=== PATIENT | male | born 1950 | race Caucasian/White ===

== ENCOUNTER 2021-06-02 09:34 | Outpatient (REF) | payer MEDICARE, BC, SELFPAY ==
[2021-06-02 10:59] LABS: MANUAL DIFF FLAG NO
[2021-06-02 11:36] LABS: Basophils Absolute Auto 0.1 X10*3/uL (0.0-0.2); Basophils Percent Auto 1.7 % (0-2); Eosinophils Absolute Auto 0.1 X10*3/uL (0.0-0.4); Eosinophils Percent Auto 0.9 % (0-4); Hematocrit 43.5 % (42-52); Hemoglobin 14.3 g/dl (14.0-18.0); Imm Gran Abs Auto 0.01 X10*3/uL (0.00-0.03); Imm Gran Pct Auto 0.2 % (0.0-0.4); Lymphocytes Absolute Auto 1.4 X10*3/uL (1.2-4.9); Lymphocytes Percent Auto 26.7 % (20-40); Mean Corpuscular HGB Conc 32.9 g/dl (31.0-36.0); Mean Corpuscular Hemoglobin 29.7 pg (27.0-33.0); Mean Corpuscular Volume 90.4 fL (80-98); Mean Platelet Volume 10.9 fL (9.4-12.4); Monocytes Absolute Auto 0.6 X10*3/uL (0.1-1.2); Monocytes Percent Auto 10.8 % (2-11); Neutrophils Absolute Auto 3.2 X10*3/uL (2.0-8.3); Neutrophils Percent Auto 59.7 % (45-73); Platelet Count 222 X10*3/uL (160-400); Red Blood Count 4.81 X10*6/uL (4.60-5.80); Red Cell Distribution Width 16.2 % (11.0-16.0); White Blood Count 5.3 X10*3/uL (4.8-10.8)
[2021-06-02 11:37] LABS: Alanine Aminotransferase 17 U/L (0-40); Albumin Level 4.3 g/dL (3.5-5.0); Alkaline Phosphatase 98 U/L (39-117); Anion Gap 13 (12-20); Aspartate Amino Transferase 22 U/L (5-37); Bilirubin Total 1.2 mg/dL (0.0-1.0); Blood Urea Nitrogen 25 mg/dL (9-16); Calcium 9.5 mg/dL (8.4-10.2); Carbon Dioxide 25 mmol/L (22-29); Chloride 110 mmol/L (96-108); Cholesterol 134 mg/dL; Estimated Glomerular Filt Rate 48; Glucose Fasting 118 mg/dL (60-99); HDL Cholesterol 36 mg/dL; LDL Cholesterol Calculated 84 mg/dl; Sodium 143 mmol/L (135-145); Total Protein 6.9 g/dL (6.5-8.0); Triglycerides 71 mg/dL
[2021-06-02 12:03] LABS: Prostate Specific Antigen 3.03 ng/mL (<0.05-4.0); TSH reflex Free T4 2.99 uIU/mL (0.32-4.0); Vitamin D 25-OH Total 39.9 ng/mL (>30)
[2021-06-02 13:02] LABS: Appearance Urine CLOUDY; Color Urine YELLOW; Glucose Urine UA NEG (NEG); Leukocyte Esterase Urine TRACE (NEG); Nitrite Urine NEG (NEG); PH 5.5 (5.0-8.0); Specific Gravity - Urine >= 1.030 (1.005-1.025); UACC Culture Trigger YES; Urine Blood NEG (NEG); Urine Ketones NEG (NEG); Urine Protein TRACE MG/DL (NEG-TRACE)
[2021-06-02 13:17] LABS: Mucus Urine 2+ /LPF; RBC Urine 0 /HPF (0)
== END 2021-06-02 09:35 | disposition home or self-care (01) ==
LOC: HO.LAB 09:34
PROVIDERS: PCP Internal Medicine; Visit Provider Internal Medicine
DX: Z12.5 Encounter for screening for malignant neoplasm of prostate (principal); E78.00 Pure hypercholesterolemia, unspecified; I10 Essential (primary) hypertension; E55.9 Vitamin D deficiency, unspecified; N40.0 Benign prostatic hyperplasia without lower urinary tract symptoms
CPT/HCPCS: 36415; 80053; 80061; 81001; 82306; 84153; 84443; 85025; 87086; 87088; 87186

== ENCOUNTER 2022-02-09 11:21 | Outpatient (REF) | payer MEDICARE, BC, SELFPAY ==
[2022-02-09 11:53] LABS: MANUAL DIFF FLAG NO
[2022-02-09 12:03] LABS: Basophils Absolute Auto 0.1 X10*3/uL (0.0-0.2); Basophils Percent Auto 0.9 % (0-2); Eosinophils Absolute Auto 0.1 X10*3/uL (0.0-0.4); Eosinophils Percent Auto 1.7 % (0-4); Hematocrit 41.8 % (42.0-52.0); Hemoglobin 14.4 g/dl (14.0-18.0); Imm Gran Abs Auto 0.03 X10*3/uL (0.00-0.03); Imm Gran Pct Auto 0.5 % (0.0-0.4); Mean Corpuscular HGB Conc 34.4 g/dl (31.0-36.0); Mean Corpuscular Volume 98.8 fL (80.0-98.0); Monocytes Absolute Auto 0.7 X10*3/uL (0.1-1.2); Monocytes Percent Auto 12.8 % (2-11); Neutrophils Absolute Auto 3.8 x10*3/uL (2.0-8.3); Neutrophils Percent Auto 66.1 % (45-73); Platelet Count 230 X10*3/uL (160-400); Red Blood Count 4.23 X10*6/uL (4.60-5.80); Red Cell Distribution Width 12.3 % (11.0-16.0); White Blood Count 5.8 X10*3/uL (4.8-10.8)
[2022-02-09 12:12] LABS: Estimated Average Glucose 117 mg/dL; Hemoglobin A1c % 5.7 %
[2022-02-09 12:29] LABS: Alanine Aminotransferase 181 U/L (0-40); Albumin Level 3.9 g/dL (3.5-5.0); Alkaline Phosphatase 106 U/L (39-117); Anion Gap 13 (12-20); Aspartate Amino Transferase 101 U/L (5-37); Bilirubin Total 1.2 mg/dL (0.0-1.0); Blood Urea Nitrogen 25 mg/dL (9-16); Carbon Dioxide 25 mmol/L (22-29); Chloride 109 mmol/L (96-108); Estimated Glomerular Filt Rate 38; Glucose Random 97 mg/dL (60-115); Potassium 4.7 mmol/L (3.3-5.1); Sodium 142 mmol/L (135-145); Total Protein 6.6 g/dL (6.5-8.0)
[2022-02-09 12:33] LABS: B Type Natriuretic Peptide 169 pg/mL (<100)
[2022-02-09 12:48] LABS: TSH reflex Free T4 0.88 uIU/mL (0.32-4.0); Vitamin D 25-OH Total 38.8 ng/mL (>30)
[2022-02-09 13:39] LABS: Appearance Urine CLEAR; Color Urine YELLOW; Glucose Urine UA NEG (NEG); Leukocyte Esterase Urine NEG (NEG); Nitrite Urine NEG (NEG); PH 5.5 (5.0-8.0); Specific Gravity - Urine >= 1.030 (1.005-1.025); UACC Culture Trigger NO; Urine Blood TRACE (NEG); Urine Ketones NEG (NEG); Urine Protein TRACE MG/DL (NEG-TRACE)
[2022-02-09 13:55] LABS: Mucus Urine TRACE /LPF; RBC Urine 0-2 /HPF (0); WBC Urine 0-2 /HPF (0-4)
== END 2022-02-09 11:22 | disposition home or self-care (01) ==
LOC: HO.LAB 11:21
PROVIDERS: PCP Internal Medicine; Visit Provider Internal Medicine
DX: I12.9 Hypertensive chronic kidney disease with stage 1 through stage 4 chronic kidney disease, or unspecified chronic kidney disease (principal); N18.30 Chronic kidney disease, stage 3 unspecified; I49.01 Ventricular fibrillation; I95.1 Orthostatic hypotension; E55.9 Vitamin D deficiency, unspecified; E78.00 Pure hypercholesterolemia, unspecified; R73.01 Impaired fasting glucose
CPT/HCPCS: 36415; 80053; 81001; 82306; 83036; 83880; 84443; 85025

== ENCOUNTER 2022-03-05 17:22 | Emergency (ER) | payer MEDICARE, BC, SELFPAY ==
[2022-03-05] VITALS (9 sets, daily range): BP systolic 76–125; BP diastolic 50–76; PULSE 70–72; RESP 15–18; TEMP 36.9; O2SAT 98–99; BMI 20.7
--- NOTE | 2022-03-05 17:30 | ECG_ITS ---
Test Reason : DIZZY Blood Pressure : / mmHG Vent. Rate : 070 BPM Atrial Rate : 070 BPM P-R Int : 196 ms QRS Dur : 102 ms QT Int : 408 ms P-R-T Axes : 107 -40 066 degrees QTc Int : 440 ms Atrial-paced rhythm Left axis deviation Abnormal ECG When compared with ECG of 15-OCT-2005 10:43, Electronic atrial pacemaker has replaced Sinus rhythm T wave amplitude has decreased in Anterior leads Referred By: Generic ED Physician Electronically Signed By:Reynaldo Noel
--- NOTE | 2022-03-05 18:03 | ED.DIZZY ---
HPI - Dizziness General Chief Complaint: Dizziness Stated Complaint: faint/light headedness/headaches Time Seen by Provider: 03/05/22 17:45 Source: patient Mode of arrival: ambulatory Limitations: no limitations History of Present Illness HPI Narrative: Patient comes emergency room complaining of dizziness. Patient states that he was working on his car today, suddenly started feeling lightheaded/room spinning, unsteady. Patient states that he did not have chest pain or shortness of breath. Patient lay down for about 20 minutes and then the symptoms resolved. Patient has had similar symptoms in the past. Patient is known to have low blood pressure. Patient went to see his primary care physician 4 days ago. Patient had a blood pressure in the 70s. Patient was taking amiodarone 400 mg, Dr. Jacobs contacted patient's physician practice market manager in [place], the dose was reduced to 200 mg of amiodarone. Patient also takes carvedilol 3.125 mg, enalapril 10 mg for his blood pressure. Patient states that he has had multiple episodes of dizziness in the past. Patient states that it is worse whenever he stands up from a sitting position. Patient has a blood pressure log, patient's blood pressure runs at baseline between low 80s to low 100s systolic. At this time, patient states that he is asymptomatic. Related Data Home Medications Medication Instructions Recorded Confirmed amiodarone 200 mg tablet 200 mg PO DAILY 06/03/21 03/01/22 atorvastatin 20 mg tablet 20 mg PO DAILY 06/03/21 03/01/22 carvedilol 3.125 mg tablet 3.125 mg PO BID 06/03/21 03/01/22 cholecalciferol (vitamin D3) 50 50 mcg PO DAILY 06/03/21 03/01/22 mcg (2,000 unit) capsule enalapril maleate 10 mg tablet 10 mg PO BID 03/01/22 03/01/22 Previous Rx's Medication Instructions Recorded ammonium lactate 12 % lotion 1 appl topical BID PRN dry skin 11/06/21 #800 grams Allergies Allergy/AdvReac Type Severity Reaction Status Date / Time No Known Allergies Allergy Verified 03/01/22 14:54 Review of Systems Review of Systems: Constitutional : No Weight loss, No Fever, No Chills, No Night Sweats, No Fatigue, No Malaise ENT/Mouth : No Hearing loss, No Ear Pain, No Nasal Congestion, No Sinus Pain, No Hoarseness, No sore throat, No Rhinorrhea, No Swallowing Difficulty Eyes: No Eye Pain, No Swelling, No Redness, No Foreign Body, No Discharge, No Vision Changes Cardiovascular : No Chest Pain, No SOB, No Dyspnea on Exertion, No Orthopnea, No Edema, No Palpitations Respiratory : No Cough, No Sputum, No Wheezing, No Smoke Exposure, No Dyspnea Gastrointestinal : No Nausea, No Vomiting, No Diarrhea, No Constipation, No abdominal Pain, No Hematochezia, No Melena Genitourinary : no irregular bleeding, No Dysuria, No Urinary Frequency, No Hematuria, No Urinary Incontinence, No Urgency, No Flank Pain, No Urinary Flow Changes, No Hesitancy Musculoskeletal : No joint pain, No Myalgias, No Joint Swelling Skin : No Skin Lesions, No rash Neuro : No Weakness, No Numbness, No Paresthesias, No Loss of Consciousness, complaining of lightheadedness, room spinning, near syncope Psych : No Anxiety/Panic, No Depression, No SI/HI/AH/VH, No Social Issues, Heme/Lymph: No Bruising, No Bleeding,No Lymphadenopathy Endocrine : No Polyuria, No Polydipsia, No Temperature Intolerance [facility] Past Medical History Medical History (Updated 03/05/22 @ 21:32 by Rubi Wilson MD) Cardiac arrest, cause unspecified Chronic kidney disease, stage III (moderate) Hyperlipidemia Mitral valve regurgitation Pacemaker Ventricular fibrillation Surgical History History of open heart surgery (~01/14/21) Family History Family History Mother No problems noted. Father Cancer Social History Social History Housing: House Alcohol intake: former Patient Tobacco Use Status: Never used Tobacco Second Hand Smoke Exposure: Yes Use of substances other than those prescribed or required for medical reasons: No Advance Directives: Yes Advance Directives on File: Yes Advance Directives Date on File: 06/10/21 service: No Current occupational status: retired Cognitive needs: No Hearing needs: No Vision needs: Yes Physical Exam Vital Signs: Vital Signs: Last Vital Signs Temp 98.5 F 03/05/22 21:54 Pulse 70 03/05/22 23:56 Resp 16 03/05/22 23:56 BP 121/63 03/05/22 23:56 Pulse Ox 98 03/05/22 23:56 O2 Del Method 03/05/22 23:56 BMI result Body Mass Index 20.7 Const: Other: Appearance: Alert. Oriented X3. No acute distress. Eyes: Pupils equal, round and reactive to light. ENT: Pharynx normal. Neck: Normal inspection. Neck supple. No lymph nodes noted. No crepitus CVS: Normal heart rate and rhythm. Pulses normal. Normal S1 and S2 Respiratory: No respiratory distress. Breath sounds normal. No Wheezing. No rales Abdomen: Soft and nontender. No rigidity. No distention. Skin: Skin warm and dry. Normal skin color. Normal skin turgor. Extremities: No lower extremity edema. No Lacerations. No Rash Neuro: Oriented X 3. No motor deficit. No sensory deficit. Moving all extremities. No slurred speech. CN 2 through 12 grossly intact Psych: calm, cooperative, normal affect Course Course Course Narrative: At this time, patient is asymptomatic. Labs are pending, EKG shows atrial paced rhythm, heart rate in the 70s, no ST segment depression or elevation, no T-wave inversion Patient's orthostatics are positive, patient's creatinine is elevated to 2.4, baseline is around 1.7. Patient receiving IV fluids. Orthostatics vitals will be reassessed. I discussed the patient with Dr. Noel, patient was instructed to cut down the enalapril to 5 mg, patient aware of plan. With IV fluids, creatinine improved, but is still on the elevated side. I discussed the patient with Dr. Jones, At this time, rather than admitting the patient, we will give another L of fluids and then recheck BMP. Creatinine keeps improving with IV fluids. Now 1.92. Patient does not want to stay in the hospital, prefers to go home. Patient will follow-up with his primary care physician. MDM - Dizziness Lab Data Result diagrams: 03/05/22 18:18 03/05/22 23:38 Labs: Lab Results 03/05/22 03/05/22 03/05/22 Range/Units 18:18 18:18 18:18 WBC 6.6 (4.8-10.8) X10*3/uL RBC 3.96 L (4.60-5.80) X10*6/uL Hgb 13.6 L (14.0-18.0) g/dl Hct 38.4 L (42.0-52.0) % MCV 97.0 (80.0-98.0) fL MCH 34.3 H (27.0-33.0) pg MCHC 35.4 (31.0-36.0) g/dl RDW 12.0 (11.0-16.0) % Plt Count 236 (160-400) X10*3/uL MPV 10.4 (9.4-12.4) fL Immature Gran % (Auto) 0.3 (0.0-0.4) % Neut % (Auto) 63.8 (45-73) % Lymph % (Auto) 18.7 L (20-40) % Evangeline % (Auto) 16.0 H (2-11) % Eos % (Auto) 0.6 (0-4) % Baso % (Auto) 0.6 (0-2) % Lymph # (Auto) 1.2 (1.2-4.9) X10*3/uL Evangeline # (Auto) 1.1 (0.1-1.2) X10*3/uL Eos # (Auto) 0.0 (0.0-0.4) X10*3/uL Baso # (Auto) 0.0 (0.0-0.2) X10*3/uL Abs Immat Gran (auto) 0.02 (0.00-0.03) X10*3/uL Absolute Neuts (auto) 4.2 (2.0-8.3) x10*3/uL Absolute Nucleated RBC 0.000 (0.0-0.012) X10*3/uL Nucleated RBC % (auto) 0.0 (0.0-0.2) /100WBC PT (9.9-13.0) SEC INR (0.9-1.1) Sodium 140 (135-145) mmol/L Potassium 5.0 (3.3-5.1) mmol/L Chloride 107 (96-108) mmol/L Carbon Dioxide 24 (22-29) mmol/L Anion Gap 14 (12-20) BUN 51 H D (9-16) mg/dL Creatinine 2.45 H (0.5-1.4) mg/dL Estim Creat Clear Calc 25.1 Estimated GFR 26 Random Glucose 109 (60-115) mg/dL Calcium 8.8 (8.4-10.2) mg/dL Magnesium (1.6-2.6) mg/dL Total Bilirubin (0.0-1.0) mg/dL Direct Bilirubin (0.0-0.5) mg/dL AST (5-37) U/L ALT (0-40) U/L Alkaline Phosphatase (39-117) U/L Troponin I High Sens (<3.5-35.0) ng/L B-Natriuretic Peptide (<100) pg/mL Total Protein (6.5-8.0) g/dL Albumin (3.5-5.0) g/dL Urine Color Urine Appearance Urine pH (5.0-8.0) Ur Specific Terry (1.005-1.025) Urine Protein (NEG-TRACE) MG/DL Urine Glucose (UA) (NEG) MG/DL Urine Ketones (NEG) MG/DL Urine Blood (NEG) Urine Nitrite (NEG) Ur Leukocyte Esterase (NEG) Urine RBC (0) /HPF Urine WBC (0-4) /HPF Ur Squamous Epith Cells /LPF Urine Bacteria /LPF Hyaline Casts /LPF COVID-19 ([facility]) Negative (Negative) COVID-19 Clin Com See Note 03/05/22 03/05/22 03/05/22 Range/Units 18:18 18:18 18:18 WBC (4.8-10.8) X10*3/uL RBC (4.60-5.80) X10*6/uL Hgb (14.0-18.0) g/dl Hct (42.0-52.0) % MCV (80.0-98.0) fL MCH (27.0-33.0) pg MCHC (31.0-36.0) g/dl RDW (11.0-16.0) % Plt Count (160-400) X10*3/uL MPV (9.4-12.4) fL Immature Gran % (Auto) (0.0-0.4) % Neut % (Auto) (45-73) % Lymph % (Auto) (20-40) % Evangeline % (Auto) (2-11) % Eos % (Auto) (0-4) % Baso % (Auto) (0-2) % Lymph # (Auto) (1.2-4.9) X10*3/uL Evangeline # (Auto) (0.1-1.2) X10*3/uL Eos # (Auto) (0.0-0.4) X10*3/uL Baso # (Auto) (0.0-0.2) X10*3/uL Abs Immat Gran (auto) (0.00-0.03) X10*3/uL Absolute Neuts (auto) (2.0-8.3) x10*3/uL Absolute Nucleated RBC (0.0-0.012) X10*3/uL Nucleated RBC % (auto) (0.0-0.2) /100WBC PT 14.1 H (9.9-13.0) SEC INR 1.2 H (0.9-1.1) Sodium 140 (135-145) mmol/L Potassium 5.0 (3.3-5.1) mmol/L Chloride 107 (96-108) mmol/L Carbon Dioxide 25 (22-29) mmol/L Anion Gap 13 (12-20) BUN 56 H (9-16) mg/dL Creatinine 2.44 H (0.5-1.4) mg/dL Estim Creat Clear Calc 25.3 Estimated GFR 26 Random Glucose 111 (60-115) mg/dL Calcium 8.8 (8.4-10.2) mg/dL Magnesium 2.3 (1.6-2.6) mg/dL Total Bilirubin 1.0 (0.0-1.0) mg/dL Direct Bilirubin 0.5 (0.0-0.5) mg/dL AST 239 H (5-37) U/L ALT 430 H (0-40) U/L Alkaline Phosphatase 111 (39-117) U/L Troponin I High Sens (<3.5-35.0) ng/L B-Natriuretic Peptide (<100) pg/mL Total Protein 6.3 L (6.5-8.0) g/dL Albumin 3.7 (3.5-5.0) g/dL Urine Color Urine Appearance Urine pH (5.0-8.0) Ur Specific Terry (1.005-1.025) Urine Protein (NEG-TRACE) MG/DL Urine Glucose (UA) (NEG) MG/DL Urine Ketones (NEG) MG/DL Urine Blood (NEG) Urine Nitrite (NEG) Ur Leukocyte Esterase (NEG) Urine RBC (0) /HPF Urine WBC (0-4) /HPF Ur Squamous Epith Cells /LPF Urine Bacteria /LPF Hyaline Casts /LPF COVID-19 ([facility]) (Negative) COVID-19 Clin Com 03/05/22 03/05/22 03/05/22 Range/Units 18:18 20:28 20:28 WBC (4.8-10.8) X10*3/uL RBC (4.60-5.80) X10*6/uL Hgb (14.0-18.0) g/dl Hct (42.0-52.0) % MCV (80.0-98.0) fL MCH (27.0-33.0) pg MCHC (31.0-36.0) g/dl RDW (11.0-16.0) % Plt Count (160-400) X10*3/uL MPV (9.4-12.4) fL Immature Gran % (Auto) (0.0-0.4) % Neut % (Auto) (45-73) % Lymph % (Auto) (20-40) % Evangeline % (Auto) (2-11) % Eos % (Auto) (0-4) % Baso % (Auto) (0-2) % Lymph # (Auto) (1.2-4.9) X10*3/uL Evangeline # (Auto) (0.1-1.2) X10*3/uL Eos # (Auto) (0.0-0.4) X10*3/uL Baso # (Auto) (0.0-0.2) X10*3/uL Abs Immat Gran (auto) (0.00-0.03) X10*3/uL Absolute Neuts (auto) (2.0-8.3) x10*3/uL Absolute Nucleated RBC (0.0-0.012) X10*3/uL Nucleated RBC % (auto) (0.0-0.2) /100WBC PT (9.9-13.0) SEC INR (0.9-1.1) Sodium 141 (135-145) mmol/L Potassium 4.9 (3.3-5.1) mmol/L Chloride 111 H (96-108) mmol/L Carbon Dioxide 22 (22-29) mmol/L Anion Gap 13 (12-20) BUN 54 H (9-16) mg/dL Creatinine 2.12 H (0.5-1.4) mg/dL Estim Creat Clear Calc 29.1 Estimated GFR 31 Random Glucose 85 (60-115) mg/dL Calcium 8.1 L D (8.4-10.2) mg/dL Magnesium (1.6-2.6) mg/dL Total Bilirubin (0.0-1.0) mg/dL Direct Bilirubin (0.0-0.5) mg/dL AST (5-37) U/L ALT (0-40) U/L Alkaline Phosphatase (39-117) U/L Troponin I High Sens 15.5 (<3.5-35.0) ng/L B-Natriuretic Peptide 101 H (<100) pg/mL Total Protein (6.5-8.0) g/dL Albumin (3.5-5.0) g/dL Urine Color YELLOW Urine Appearance HAZY Urine pH 5.5 (5.0-8.0) Ur Specific Terry 1.025 (1.005-1.025) Urine Protein TRACE (NEG-TRACE) MG/DL Urine Glucose (UA) 100 H (NEG) MG/DL Urine Ketones 5 (NEG) MG/DL Urine Blood TRACE (NEG) Urine Nitrite NEG (NEG) Ur Leukocyte Esterase TRACE H (NEG) Urine RBC 1-4 (0) /HPF Urine WBC 1-4 (0-4) /HPF Ur Squamous Epith Cells 1+ /LPF Urine Bacteria TRACE /LPF Hyaline Casts 1-4 /LPF COVID-19 ([facility]) (Negative) COVID-19 Clin Com 03/05/22 03/05/22 Range/Units 20:45 23:38 WBC (4.8-10.8) X10*3/uL RBC (4.60-5.80) X10*6/uL Hgb (14.0-18.0) g/dl Hct (42.0-52.0) % MCV (80.0-98.0) fL MCH (27.0-33.0) pg MCHC (31.0-36.0) g/dl RDW (11.0-16.0) % Plt Count (160-400) X10*3/uL MPV (9.4-12.4) fL Immature Gran % (Auto) (0.0-0.4) % Neut % (Auto) (45-73) % Lymph % (Auto) (20-40) % Evangeline % (Auto) (2-11) % Eos % (Auto) (0-4) % Baso % (Auto) (0-2) % Lymph # (Auto) (1.2-4.9) X10*3/uL Evangeline # (Auto) (0.1-1.2) X10*3/uL Eos # (Auto) (0.0-0.4) X10*3/uL Baso # (Auto) (0.0-0.2) X10*3/uL Abs Immat Gran (auto) (0.00-0.03) X10*3/uL Absolute Neuts (auto) (2.0-8.3) x10*3/uL Absolute Nucleated RBC (0.0-0.012) X10*3/uL Nucleated RBC % (auto) (0.0-0.2) /100WBC PT (9.9-13.0) SEC INR (0.9-1.1) Sodium 142 (135-145) mmol/L Potassium 4.1 (3.3-5.1) mmol/L Chloride 113 H (96-108) mmol/L Carbon Dioxide 21 L (22-29) mmol/L Anion Gap 12 (12-20) BUN 51 H (9-16) mg/dL Creatinine 1.92 H (0.5-1.4) mg/dL Estim Creat Clear Calc 32.1 Estimated GFR 35 Random Glucose 112 (60-115) mg/dL Calcium 7.8 L (8.4-10.2) mg/dL Magnesium (1.6-2.6) mg/dL Total Bilirubin (0.0-1.0) mg/dL Direct Bilirubin (0.0-0.5) mg/dL AST (5-37) U/L ALT (0-40) U/L Alkaline Phosphatase (39-117) U/L Troponin I High Sens 17.1 (<3.5-35.0) ng/L B-Natriuretic Peptide (<100) pg/mL Total Protein (6.5-8.0) g/dL Albumin (3.5-5.0) g/dL Urine Color Urine Appearance Urine pH (5.0-8.0) Ur Specific Terry (1.005-1.025) Urine Protein (NEG-TRACE) MG/DL Urine Glucose (UA) (NEG) MG/DL Urine Ketones (NEG) MG/DL Urine Blood (NEG) Urine Nitrite (NEG) Ur Leukocyte Esterase (NEG) Urine RBC (0) /HPF Urine WBC (0-4) /HPF Ur Squamous Epith Cells /LPF Urine Bacteria /LPF Hyaline Casts /LPF COVID-19 ([facility]) (Negative) COVID-19 Clin Com Discharge Plan Discharge Clinical Impression: Dizziness, Orthostatic hypotension, ISABELLE (acute kidney injury) Patient Disposition: Home, Self-Care Instructions: Acute Kidney Injury (DC), Hypotension (ED) Additional Instructions: Please decrease your enalapril dose to 5 mg. Please follow-up with your primary care physician tomorrow. If you have any worsening or new symptoms, please return to the emergency room or call 911 Prescriptions: No Action ammonium lactate 12 % lotion 1 appl topical BID PRN (Reason: dry skin) Qty: 800 3RF amiodarone 200 mg tablet 200 mg PO DAILY carvedilol 3.125 mg tablet 3.125 mg PO BID cholecalciferol (vitamin D3) 50 mcg (2,000 unit) capsule 50 mcg PO DAILY atorvastatin 20 mg tablet 20 mg PO DAILY enalapril maleate 10 mg tablet 10 mg PO BID Referrals: Reynaldo Noel MD [Physician] -
--- NOTE | 2022-03-05 18:15 | PC.NURSE ---
patient A/O X4 . skin warm dry . patient hypotensive and placed on front desk monitor , BP 77/54 . PT asymptomatic . EKG obtained . provider aware . Fluids hung as order .
[2022-03-05] MEDS: 0.9 % Sodium Chloride 1,000 ML 999 ML IVCONT ×2 (18:19→22:08)
[2022-03-05 18:27] LABS: MANUAL DIFF FLAG NO
[2022-03-05 18:31] LABS: Basophils Percent Auto 0.6 % (0-2); Eosinophils Percent Auto 0.6 % (0-4); Hematocrit 38.4 % (42.0-52.0); Hemoglobin 13.6 g/dl (14.0-18.0); Imm Gran Abs Auto 0.02 X10*3/uL (0.00-0.03); Imm Gran Pct Auto 0.3 % (0.0-0.4); Lymphocytes Absolute Auto 1.2 X10*3/uL (1.2-4.9); Lymphocytes Percent Auto 18.7 % (20-40); Mean Corpuscular HGB Conc 35.4 g/dl (31.0-36.0); Mean Corpuscular Hemoglobin 34.3 pg (27.0-33.0); Mean Platelet Volume 10.4 fL (9.4-12.4); Monocytes Absolute Auto 1.1 X10*3/uL (0.1-1.2); Neutrophils Absolute Auto 4.2 x10*3/uL (2.0-8.3); Neutrophils Percent Auto 63.8 % (45-73); Platelet Count 236 X10*3/uL (160-400); Red Blood Count 3.96 X10*6/uL (4.60-5.80); White Blood Count 6.6 X10*3/uL (4.8-10.8)
[2022-03-05 18:36] LABS: INTERNATIONAL NORM RATIO 1.2 (0.9-1.1); Prothrombin Time 14.1 SEC (9.9-13.0)
[2022-03-05 18:43] LABS: Anion Gap 14 (12-20); Blood Urea Nitrogen 51 mg/dL (9-16); Calcium 8.8 mg/dL (8.4-10.2); Carbon Dioxide 24 mmol/L (22-29); Chloride 107 mmol/L (96-108); Creatinine Clr Calc Pharmacy 25.1; Estimated Glomerular Filt Rate 26; Glucose Random 109 mg/dL (60-115); Sodium 140 mmol/L (135-145)
[2022-03-05 18:46] LABS: COVID-19 Test Negative (Negative); Magnesium 2.3 mg/dL (1.6-2.6)
[2022-03-05 18:49] LABS: Alanine Aminotransferase 430 U/L (0-40); Albumin Level 3.7 g/dL (3.5-5.0); Alkaline Phosphatase 111 U/L (39-117); Anion Gap 13 (12-20); Aspartate Amino Transferase 239 U/L (5-37); Bilirubin Direct 0.5 mg/dL (0.0-0.5); Blood Urea Nitrogen 56 mg/dL (9-16); Calcium 8.8 mg/dL (8.4-10.2); Carbon Dioxide 25 mmol/L (22-29); Chloride 107 mmol/L (96-108); Creatinine Clr Calc Pharmacy 25.3; Estimated Glomerular Filt Rate 26; Glucose Random 111 mg/dL (60-115); Sodium 140 mmol/L (135-145); Total Protein 6.3 g/dL (6.5-8.0)
[2022-03-05 18:50] LABS: B Type Natriuretic Peptide 101 pg/mL (<100); Troponin-I High Sensitivity 15.5 ng/L (<3.5-35.0)
[2022-03-05 20:36] LABS: Appearance Urine HAZY; Color Urine YELLOW; Glucose Urine UA 100 MG/DL (NEG); Leukocyte Esterase Urine TRACE (NEG); Nitrite Urine NEG (NEG); PH 5.5 (5.0-8.0); Specific Gravity - Urine 1.025 (1.005-1.025); UACC Culture Trigger NO; Urine Blood TRACE (NEG); Urine Ketones 5 MG/DL (NEG); Urine Protein TRACE MG/DL (NEG-TRACE)
[2022-03-05 20:44] LABS: Bacteria Urine TRACE /LPF; Squamous Epithelial Cell Urine 1+ /LPF
[2022-03-05 21:04] LABS: Anion Gap 13 (12-20); Blood Urea Nitrogen 54 mg/dL (9-16); Calcium 8.1 mg/dL (8.4-10.2); Carbon Dioxide 22 mmol/L (22-29); Chloride 111 mmol/L (96-108); Creatinine Clr Calc Pharmacy 29.1; Estimated Glomerular Filt Rate 31; Glucose Random 85 mg/dL (60-115); Potassium 4.9 mmol/L (3.3-5.1); Sodium 141 mmol/L (135-145)
[2022-03-05 21:08] LABS: Troponin-I High Sensitivity 17.1 ng/L (<3.5-35.0)
[2022-03-06 00:03] LABS: Anion Gap 12 (12-20); Blood Urea Nitrogen 51 mg/dL (9-16); Calcium 7.8 mg/dL (8.4-10.2); Carbon Dioxide 21 mmol/L (22-29); Chloride 113 mmol/L (96-108); Creatinine Clr Calc Pharmacy 32.1; Estimated Glomerular Filt Rate 35; Glucose Random 112 mg/dL (60-115); Potassium 4.1 mmol/L (3.3-5.1); Sodium 142 mmol/L (135-145)
== END 2022-03-06 01:26 | disposition home or self-care (01) ==
PROVIDERS: Emergency Provider Emergency Medicine; PCP Internal Medicine
DX: I95.1 Orthostatic hypotension (principal); N17.9 Acute kidney failure, unspecified; N18.30 Chronic kidney disease, stage 3 unspecified; Z79.899 Other long term (current) drug therapy; Z20.822 Contact with and (suspected) exposure to COVID-19
CPT/HCPCS: 36415; 80048; 80076; 81001; 83735; 83880; 84484; 85025; 85610; 87635; 93005; 96360; 96361; 99283; 99284; 99285

== ENCOUNTER → 2022-03-17 12:29 | Outpatient (BNVA) | payer MEDICARE, BC, SELFPAY | PROVIDERS: PCP Internal Medicine; Visit Provider Internal Medicine Cardiovascular Disease | DX: I95.1 Orthostatic hypotension (principal); Z86.74 Personal history of sudden cardiac arrest; Z95.810 Presence of automatic (implantable) cardiac defibrillator; Z95.818 Presence of other cardiac implants and grafts; Z79.82 Long term (current) use of aspirin | CPT/HCPCS: 99202 ==

== ENCOUNTER 2022-03-29 06:04 | Outpatient (REF) | payer MEDICARE, BC, SELFPAY ==
[2022-03-29 08:50] LABS: Alanine Aminotransferase 140 U/L (0-40); Albumin Level 3.3 g/dL (3.5-5.0); Alkaline Phosphatase 100 U/L (39-117); Anion Gap 12 (12-20); Aspartate Amino Transferase 76 U/L (5-37); Blood Urea Nitrogen 32 mg/dL (9-16); Calcium 8.7 mg/dL (8.4-10.2); Carbon Dioxide 26 mmol/L (22-29); Chloride 109 mmol/L (96-108); Estimated Glomerular Filt Rate 55; Glucose Random 89 mg/dL (60-115); Potassium 4.7 mmol/L (3.3-5.1); Sodium 142 mmol/L (135-145); Total Protein 5.7 g/dL (6.5-8.0)
[2022-03-29 09:30] LABS: Appearance Urine CLEAR; Color Urine YELLOW; Glucose Urine UA NEG (NEG); Leukocyte Esterase Urine 1+ (NEG); Nitrite Urine NEG (NEG); PH 5.5 (5.0-8.0); Specific Gravity - Urine >= 1.030 (1.005-1.025); UACC Culture Trigger YES; Urine Blood NEG (NEG); Urine Ketones 5 MG/DL (NEG); Urine Protein TRACE MG/DL (NEG-TRACE)
[2022-03-29 09:40] LABS: Squamous Epithelial Cell Urine TRACE /LPF
[2022-03-29 09:41] LABS: Granular Casts Urine 0-2 /LPF; Hyaline Casts Urine 0-2 /LPF
[2022-03-29 09:42] LABS: Bacteria Urine 1+ /LPF; Mucus Urine TRACE /LPF; RBC Urine 0 /HPF (0)
== END 2022-03-29 06:05 | disposition home or self-care (01) ==
LOC: HO.LAB 06:04
PROVIDERS: PCP Internal Medicine; Visit Provider Internal Medicine
DX: I10 Essential (primary) hypertension (principal); N18.30 Chronic kidney disease, stage 3 unspecified; R79.89 Other specified abnormal findings of blood chemistry
CPT/HCPCS: 36415; 80053; 81001; 87086

== ENCOUNTER 2022-05-14 07:27 | Outpatient (REF) | payer MEDICARE, BC, SELFPAY ==
[2022-05-14 08:22] LABS: Basophils Percent Auto 1.2 % (0-2); Eosinophils Absolute Auto 0.1 X10*3/uL (0.0-0.4); Eosinophils Percent Auto 1.4 % (0-4); Hematocrit 34.9 % (42.0-52.0); Hemoglobin 12.1 g/dl (14.0-18.0); Imm Gran Abs Auto 0.01 X10*3/uL (0.00-0.03); Imm Gran Pct Auto 0.3 % (0.0-0.4); Lymphocytes Percent Auto 27.5 % (20-40); MANUAL DIFF FLAG SCAN; Mean Corpuscular HGB Conc 34.7 g/dl (31.0-36.0); Mean Corpuscular Volume 95.1 fL (80.0-98.0); Monocytes Absolute Auto 0.4 X10*3/uL (0.1-1.2); Monocytes Percent Auto 11.3 % (2-11); Neutrophils Percent Auto 58.3 % (45-73); PLT CLUMP 1; Red Blood Count 3.67 X10*6/uL (4.60-5.80); Red Cell Distribution Width 12.5 % (11.0-16.0); SCAN SMEAR FLAG 1
[2022-05-14 08:23] LABS: White Blood Count 3.5 X10*3/uL (4.8-10.8)
[2022-05-14 08:27] LABS: Estimated Average Glucose 94 mg/dL; Hemoglobin A1c % 4.9 %
[2022-05-14 08:44] LABS: Alanine Aminotransferase 19 U/L (0-40); Albumin Level 3.1 g/dL (3.5-5.0); Alkaline Phosphatase 83 U/L (39-117); Anion Gap 12 (12-20); Aspartate Amino Transferase 21 U/L (5-37); Bilirubin Total 1.3 mg/dL (0.0-1.0); Blood Urea Nitrogen 19 mg/dL (9-16); Calcium 8.2 mg/dL (8.4-10.2); Carbon Dioxide 24 mmol/L (22-29); Chloride 112 mmol/L (96-108); Cholesterol 120 mg/dL; Estimated Glomerular Filt Rate > 60; Glucose Fasting 88 mg/dL (60-99); HDL Cholesterol 28 mg/dL; LDL Cholesterol Calculated 77 mg/dl; Potassium 3.8 mmol/L (3.3-5.1); Sodium 144 mmol/L (135-145); Total Protein 5.5 g/dL (6.5-8.0); Triglycerides 79 mg/dL
[2022-05-14 09:08] LABS: TSH reflex Free T4 < 0.01 uIU/mL (0.32-4.0); Vitamin D 25-OH Total 39.5 ng/mL (>30)
[2022-05-14 09:15] LABS: Appearance Urine Clear; Color Urine Dark Yellow; Glucose Urine UA Negative (Negative); Leukocyte Esterase Urine Moderate (2+) (Negative); Nitrite Urine Positive (Negative); Urine Blood Negative (Negative); Urine Ketones Trace mg/dL (Negative); Urine Protein Trace mg/dL (Neg-Trace)
[2022-05-14 09:16] LABS: Mean Platelet Volume 11.8 fL (9.4-12.4); Platelet Count 181 X10*3/uL (160-400)
[2022-05-14 09:17] LABS: SLIDE REVIEW VERIFIED
[2022-05-14 09:38] LABS: Bacteria Urine 1+ (None Seen); RBC Urine 0-2 /HPF (0-2); Squamous Epithelial Cell Urine 0-2 /HPF (0-2); UACC Culture Trigger YES; WBC Urine 21-50 /HPF (0-5)
[2022-05-14 09:46] LABS: Free T4 (Free Thyroxine) 1.91 ng/dL (0.71-1.85)
== END 2022-05-14 07:28 | disposition home or self-care (01) ==
LOC: HO.LAB 07:27
PROVIDERS: PCP Internal Medicine; Visit Provider Internal Medicine
DX: E78.00 Pure hypercholesterolemia, unspecified (principal); R73.01 Impaired fasting glucose; E55.9 Vitamin D deficiency, unspecified; I10 Essential (primary) hypertension
CPT/HCPCS: 36415; 80053; 80061; 81001; 82306; 83036; 84439; 84443; 85025; 87086

== ENCOUNTER 2023-02-21 06:03 | Outpatient (REF) | payer MEDICARE, BC, SELFPAY ==
[2023-02-21 06:23] LABS: MANUAL DIFF FLAG NO
[2023-02-21 07:30] LABS: Basophils Absolute Auto 0.1 X10*3/uL (0.0-0.2); Basophils Percent Auto 1.1 % (0-2); Eosinophils Absolute Auto 0.1 X10*3/uL (0.0-0.4); Eosinophils Percent Auto 1.3 % (0-4); Hematocrit 44.7 % (42.0-52.0); Hemoglobin 15.3 g/dl (14.0-18.0); Imm Gran Abs Auto 0.01 X10*3/uL (0.00-0.03); Imm Gran Pct Auto 0.2 % (0.0-0.4); Lymphocytes Absolute Auto 1.4 X10*3/uL (1.2-4.9); Lymphocytes Percent Auto 32.3 % (20-40); Mean Corpuscular HGB Conc 34.2 g/dl (31.0-36.0); Mean Corpuscular Hemoglobin 33.8 pg (27.0-33.0); Mean Corpuscular Volume 98.9 fL (80.0-98.0); Mean Platelet Volume 10.6 fL (9.4-12.4); Monocytes Absolute Auto 0.4 X10*3/uL (0.1-1.2); Monocytes Percent Auto 9.9 % (2-11); Neutrophils Absolute Auto 2.5 x10*3/uL (2.0-8.3); Neutrophils Percent Auto 55.2 % (45-73); Platelet Count 202 X10*3/uL (160-400); Red Blood Count 4.52 X10*6/uL (4.60-5.80); Red Cell Distribution Width 12.5 % (11.0-16.0); White Blood Count 4.5 X10*3/uL (4.8-10.8)
[2023-02-21 07:47] LABS: Estimated Average Glucose 103 mg/dL; Hemoglobin A1c % 5.2 %
[2023-02-21 08:15] LABS: Alanine Aminotransferase 18 U/L (0-40); Alkaline Phosphatase 78 U/L (39-117); Anion Gap 13 (12-20); Aspartate Amino Transferase 23 U/L (5-37); Blood Urea Nitrogen 17 mg/dL (9-16); Calcium 9.1 mg/dL (8.4-10.2); Carbon Dioxide 26 mmol/L (22-29); Chloride 110 mmol/L (96-108); Cholesterol 185 mg/dL; Estimated Glomerular Filt Rate 49; Glucose Fasting 102 mg/dL (60-99); HDL Cholesterol 34 mg/dL; LDL Cholesterol Calculated 137 mg/dl; Potassium 5.2 mmol/L (3.3-5.1); Sodium 144 mmol/L (135-145); Triglycerides 73 mg/dL
[2023-02-21 08:35] LABS: Free T4 (Free Thyroxine) 0.99 ng/dL (0.71-1.85); Thyroid Stimulating Hormone 5.32 uIU/mL (0.32-4.0); Vitamin D 25-OH Total 47.3 ng/mL (>30)
[2023-02-21 08:52] LABS: Appearance Urine Clear; Color Urine Yellow; Glucose Urine UA Negative (Negative); Leukocyte Esterase Urine Trace (Negative); Nitrite Urine Negative (Negative); Specific Gravity - Urine 1.015 (1.005-1.025); UMIC TRIGGER UACC YES; Urine Blood Negative (Negative); Urine Ketones Negative (Negative); Urine Protein Negative (Neg-Trace)
[2023-02-21 08:58] LABS: Bacteria Urine None Seen (None Seen); Hyaline Casts Urine 0-2 /LPF (0-2); RBC Urine 0-2 /HPF (0-2); Squamous Epithelial Cell Urine 0-2 /HPF (0-2); WBC Urine 0-5 /HPF (0-5)
== END 2023-02-21 06:04 | disposition home or self-care (01) ==
LOC: HO.LAB 06:03
PROVIDERS: PCP Internal Medicine; Visit Provider Internal Medicine
DX: I10 Essential (primary) hypertension (principal); E55.9 Vitamin D deficiency, unspecified; E06.4 Drug-induced thyroiditis; R73.01 Impaired fasting glucose; E78.00 Pure hypercholesterolemia, unspecified; T46.2X5A Adverse effect of other antidysrhythmic drugs, initial encounter
CPT/HCPCS: 36415; 80053; 80061; 81001; 82306; 83036; 84439; 84443; 85025

== ENCOUNTER 2023-05-31 06:47 | Outpatient (REF) | payer MEDICARE, BC, SELFPAY ==
[2023-05-31 06:59] LABS: MANUAL DIFF FLAG NO
[2023-05-31 07:32] LABS: Basophils Absolute Auto 0.1 X10*3/uL (0.0-0.2); Basophils Percent Auto 1.2 % (0-2); Eosinophils Absolute Auto 0.1 X10*3/uL (0.0-0.4); Eosinophils Percent Auto 1.6 % (0-4); Hematocrit 44.7 % (42.0-52.0); Hemoglobin 15.2 g/dl (14.0-18.0); Imm Gran Abs Auto 0.02 X10*3/uL (0.00-0.03); Imm Gran Pct Auto 0.4 % (0.0-0.4); Lymphocytes Percent Auto 38.6 % (20-40); Mean Corpuscular Hemoglobin 33.9 pg (27.0-33.0); Mean Corpuscular Volume 99.8 fL (80.0-98.0); Mean Platelet Volume 10.4 fL (9.4-12.4); Monocytes Absolute Auto 0.5 X10*3/uL (0.1-1.2); Monocytes Percent Auto 9.4 % (2-11); Neutrophils Absolute Auto 2.5 x10*3/uL (2.0-8.3); Neutrophils Percent Auto 48.8 % (45-73); Platelet Count 206 X10*3/uL (160-400); Red Blood Count 4.48 X10*6/uL (4.60-5.80); Red Cell Distribution Width 12.1 % (11.0-16.0); White Blood Count 5.1 X10*3/uL (4.8-10.8)
[2023-05-31 07:45] LABS: Estimated Average Glucose 100 mg/dL; Hemoglobin A1c % 5.1 % (<6.0)
[2023-05-31 07:57] LABS: Alanine Aminotransferase 18 U/L (0-40); Albumin Level 4.3 g/dL (3.5-5.0); Alkaline Phosphatase 83 U/L (39-117); Anion Gap 13 (12-20); Aspartate Amino Transferase 27 U/L (5-37); Bilirubin Total 1.3 mg/dL (0.0-1.0); Blood Urea Nitrogen 23 mg/dL (9-16); Calcium 9.2 mg/dL (8.4-10.2); Carbon Dioxide 27 mmol/L (22-29); Chloride 109 mmol/L (96-108); Cholesterol 130 mg/dL (<200); Estimated Glomerular Filt Rate 45; Glucose Fasting 103 mg/dL (60-99); HDL Cholesterol 35 mg/dL (>40); LDL Cholesterol Calculated 79 mg/dL (<100); Potassium 4.5 mmol/L (3.3-5.1); Sodium 144 mmol/L (135-145); Total Protein 7.5 g/dL (6.5-8.0); Triglycerides 82 mg/dL (<150)
[2023-05-31 08:12] LABS: Free T4 (Free Thyroxine) 1.06 ng/dL (0.71-1.85); Thyroid Stimulating Hormone 4.82 uIU/mL (0.32-4.0); Vitamin D 25-OH Total 44.3 ng/mL (>30)
== END 2023-05-31 06:48 | disposition home or self-care (01) ==
LOC: HO.LAB 06:47
PROVIDERS: PCP Internal Medicine; Visit Provider Internal Medicine
DX: E78.00 Pure hypercholesterolemia, unspecified (principal); I10 Essential (primary) hypertension; E03.9 Hypothyroidism, unspecified; E55.9 Vitamin D deficiency, unspecified; R73.01 Impaired fasting glucose
CPT/HCPCS: 36415; 80053; 80061; 82306; 83036; 84439; 84443; 85025

== ENCOUNTER 2023-06-06 09:10 | Outpatient (AMB) | payer MEDICARE, BC, SELFPAY ==
[2023-06-06 09:12] VITALS: BP 116/80; PULSE 70; O2SAT 98; BMI 22.4
--- NOTE | 2023-06-06 09:12 | MHC.PC.OV ---
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 Accompanied by: Self / Same As Patient Allergies No Known Allergies Allergy (Verified 06/06/23 09:56) Medication List - Last Reconciled 06/06/23 by Papito Jacobs MD amiodarone 200 mg PO DAILY ammonium lactate 12% 1 appl topical BID PRN amoxicillin 2,000 mg (4 x 500 mg) PO ONCE atorvastatin 10 mg PO DAILY 90 days carvedilol 3.125 mg PO BID cholecalciferol (vitamin D3) 50 mcg PO DAILY levothyroxine Take 1 tablet orally daily on Mondays to Fridays and 2 tablets daily on Saturdays and Sundays Tobacco use date assessed: 06/06/23 Fall risk assessment: No Falls in past year Last assessed Fall Risk: 06/06/23 Dental Screening Dental Screen Date: 06/06/23 Did you have a dental visit in the last 12 months?: Yes Did you have a dental problem in the last 6 months where you did not have access to dental care?: No Was dental information given to patient?: Patient has dentist HPI Annual Exam HPI Details Patient comes in today for his annual physical examination States that he feels okay and he and his are both getting ready to head down to [place] for the winter - will be leaving in a couple of weeks He denies any headaches or dizziness Denies any chest pains, no SOB No nausea/vomiting, no abdominal pain No change in bowel habits noted Denies any acute urinary symptoms Had his follow up labs done last week - to discuss his results Had his last colonoscopy done [place] [address] Magana; recommended to have repeat colonoscopy done in 10 yrs (2025) [facility] Medical History Acquired hypothyroidism Mitral valve regurgitation Impaired fasting glucose Elevated blood pressure reading Pure hypercholesterolemia Ventricular fibrillation Elevated PSA Dry skin dermatitis Pacemaker Hyperlipidemia Vitamin D deficiency Surgical History Status post implantation of mitral valve leaflet clip Hx of cardiac pacemaker Family History Mother No problems noted. Father Cancer Social History Housing: House Alcohol intake: former Patient Tobacco Use Status: Never used Tobacco e-Cigarette/Vaping Use: Never Used Second Hand Smoke Exposure: Yes Advance Directives Date on File: 06/10/21 service: No Current occupational status: retired Cognitive needs: No Hearing needs: No Vision needs: Yes Questionnaire PHQ-9 Over the last 2 weeks, how often have you been bothered by any of the following problems? 1. Little interest or pleasure in doing things: not at all 2. Feeling down, depressed, or hopeless: not at all 3. Trouble falling or staying asleep, or sleeping too much: not at all 4. Feeling tired or having little energy: not at all 5. Poor appetite or overeating: not at all 6. Feeling bad about yourself - or that you are a failure or have let yourself or your family down: not at all 7. Trouble concentrating on things, such as reading the newspaper or watching television: not at all 8. Moving or speaking so slowly that other people could have noticed. Or the opposite - being so fidgety or restless that you have been moving around a lot more than usual: not at all 9. Thoughts that you would be better off or of hurting yourself in some way: not at all Total score: 0 Depression Screening Interpretation: Negative 23595 - PHQ-9 Billing: Yes Source: Developed by Drs. Romulo Duke, Keyla Carroll, Neto Hernandez and colleagues, with an educational clarice from [employer]. Thrive Questionnaire Date Thrive assessed: 06/06/23 I am a: Patient What is your living situation today?: I have a steady place to live Within the past 12 months, did the food you bought not last and you didn't have the money to get more?: Never true Within the past 12 months, did you worry whether your food would run out before you got money to buy more?: Never true Do you have trouble paying for medicines?: No Do you have trouble getting transportation to medical appointments?: No Do you have trouble paying your heating and electricity bill?: No Do you have trouble taking care of your child, family member or friend?: No Do you have trouble with day-to-day activities such as bathing, preparing meals, shopping, managing finances, etc.?: No Are you currently unemployed and looking for a job?: No Are you interested in more education?: No Please select the resources that you would like help with: None Currently or been in a relationship where the following occur: no concerns reported AUDIT C Alcohol Use Questionnaire (AUDIT-C) 1. How often do you have a drink containing alcohol?: Never 3. How often do you have six or more drinks on one occasion?: Never Total Score: 0 Score Reviewed/Action Taken: Yes CHAR-7 AMB Questionnaire CHAR-7 Date CHAR - 7 assessed: 06/06/23 Feeling nervous, anxious, or on edge: 0 = Not at all Not being able to stop or control worryin = Not at all Worrying too much about different things: 0 = Not at all Trouble relaxin = Not at all Being so restless that it is hard to sit still: 0 = Not at all Becoming easily annoyed or irritable: 0 = Not at all Feeling afraid as if something awful might happen: 0 = Not at all Total CHAR-7 score (0-4 normal; 5-9 mild; 10-14 moderate; 15-21 severe): 0 Source: Developed by Drs. Romulo Duke, Keyla Carroll, Neto Hernandez and colleagues, with an educational clarice from [employer]. Review of Systems Const Denies chills, Denies difficulty sleeping, Denies fatigue, Denies fever(s), Denies headache(s), Denies malaise and Denies weakness Eyes Denies blurry vision, Denies change in vision, Denies irritation and Denies itchy eyes ENT Denies dysphagia, Denies dizziness, Denies otalgia, Denies headache(s), Denies nasal congestion, Denies neck pain, Denies odynophagia and Denies sore throat Card Denies chest pain, Denies rapid heart rate, Denies irregular heart rhythm, Denies palpitations and Denies dyspnea Resp Denies chest congestion, Denies cough, Denies dyspnea and Denies wheezing GI Denies abdominal pain, Denies bloating, Denies constipation, Denies dysphagia, Denies heartburn, Denies diarrhea, Denies nausea, Denies odynophagia and Denies vomiting Denies hematuria, Denies difficulty urinating, Denies dysuria, Denies urinary frequency and Denies urinary urgency Musc Denies back pain, Denies arthralgias, Denies joint swelling, Denies muscle weakness and Denies neck pain Skin/Breast Denies change in pigmentation, Denies lesions, Denies rash and Denies unusual bruising Neuro Denies dizziness, Denies headache(s), Denies paresthesias and Denies weakness Endo Denies fatigue and Denies palpitations Aller/Immun Denies itchy eyes and Denies wheezing Physical exam (Primary Care) Vital Signs: Last Vital Signs Pulse 70 06/06/23 09:12 BP 116/80 06/06/23 09:12 Pulse Ox 98 06/06/23 09:12 Oxygen Delivery Method Room Air 06/06/23 09:12 BMI result Body Mass Index 22.4 Tobacco/Smoking Status: Tobacco use Status Tobacco use date assessed 06/06/23 06/06/23 09:16 Patient Tobacco Use Status Never used Tobacco 06/06/23 09:16 e-Cigarette/Vaping Use Never Used 06/06/23 09:16 PHQ-9: PHQ-9 Score PHQ-9: Total score 0 06/06/23 09:16 Depression Screening Interpretation: Negative Thrive Assessment: Date of Thrive Assessment Date Thrive assessed 06/06/23 06/06/23 09:16 Currently or been in a relationship where the following occur: no concerns reported Const General: no acute distress, alert and awake Orientation/consciousness: patient oriented x3 [facility] Head: Yes normocephalic and Yes atraumatic Ears: external ears normal, TM's normal bilaterally and EAC's normal General nose exam: No nasal discharge present Face and sinus: Yes normal facial exam and Yes sinuses nontender Teeth and gingiva: dentition normal Throat: Yes posterior oropharynx normal and Yes tonsils normal (no TP congestion) Eyes Eyelids: Yes eyelids normal Conjunctivae: conjunctivae normal Pupils: Equal, round and reactive pupils present EOM: EOMs intact bilaterally Neck Neck: Yes no lymphadenopathy and Yes supple Thyroid: Thyroid normal Resp Auscultation: clear to auscultation bilaterally, no rales and no wheezes Cardio Rate: regular rate Rhythm: regular rhythm Heart sounds: no murmurs GI Palpation (GI): Soft to palpation, nontender and No hepatosplenomegaly present Auscultation: normal bowel sounds General: Yes no CVA tenderness Back/Spine/Pelvis Back: no CVA tenderness Thoracic/Lumbar Spine: thoracic and lumbar spine normal to inspection Skin Lesions: no lesions Rashes: no rashes Neuro General: patient oriented x3, moves all extremities, no focal motor deficits and CN's II-XI intact bilaterally Cranial nerves: Yes Equal, round and reactive pupils present Cognition (Neuro): normal cognition Gait exam (Neuro): Normal gait present Extrem General: Yes no clubbing, cyanosis or edema Results Reviewed Results Reviewed: Laboratory Tests 02/21/23 02/21/23 05/31/23 06:19 06:19 06:58 WBC 5.1 Hgb 15.2 Hct 44.7 Plt Count 206 Sodium 144 Potassium 4.5 Creatinine 1.54 H Estimated GFR 45 Fasting Glucose 103 H Hemoglobin A1c % 5.1 Calcium 9.2 AST 27 ALT 18 Triglycerides 82 Cholesterol 130 LDL Cholesterol, Calc 79 HDL Cholesterol 25-OH Vitamin D Total TSH 4.82 H Free T4 1.06 Ur Specific [place] 1.015 Urine Protein Negative Urine Glucose (UA) Negative Urine Blood Negative 05/31/23 05/31/23 06:58 06:58 WBC Hgb Hct Plt Count Sodium Potassium Creatinine Estimated GFR Fasting Glucose Hemoglobin A1c % Calcium AST ALT Triglycerides Cholesterol LDL Cholesterol, Calc HDL Cholesterol 35 L 25-OH Vitamin D Total 44.3 TSH Free T4 Ur Specific [place] Urine Protein Urine Glucose (UA) Urine Blood Assessment and Plan Assessment & Plan (1) Annual physical exam: Code(s): Z00.00 - Encounter for general adult medical examination without abnormal findings Plan: Results of his labs done last week reviewed and discussed with patient He is up-to-date with his screening colonoscopy and will not be due for repeat until 2025 (2) Acquired hypothyroidism: Code(s): E03.9 - Hypothyroidism, unspecified Plan: S/P Amiodarone-induced thyroiditis; currently remains on Amiodarone 200 mg QD Is advised that his TFTs are gradually normalizing based on his recent lab results Continue Levothyroxine 25 mcg QD Mondays to Fridays and 50 mcg QD on Saturdays and Sundays Will recheck his TFTs in 6 months when patient returns from his winter trip down to [place] (3) Ventricular fibrillation: Comment: S/P ICD implantation for secondary prevention Code(s): I49.01 - Ventricular fibrillation Plan: Continue Amiodarone 200 mg QD Follow up with cardiology as scheduled (4) Cardiac arrest, cause unspecified: Comment: S/P sudden cardiac arrest due to ventricular fibrillation in June 2019 when patient was down in [place] - was successfully resuscitated Cardiac catheterization done revealed no evidence of significant CAD; echocardiogram was reportedly also normal, with normal EF and with no wall motion abnormalities Code(s): I46.9 - Cardiac arrest, cause unspecified Plan: Continue Carvedilol 3.125 mg BID 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 Head locally when he is up here in [facility] - to follow up with his cardiologists as scheduled (5) Pure hypercholesterolemia: Code(s): E78.00 - Pure hypercholesterolemia, unspecified Plan: Results of his labs done last week reviewed and discussed with patient - lipids have improved significantly from previous (was started back on Atorvastatin at his last visit) Reinforced low cholesterol diet Continue Atorvastatin 10 mg QD Will recheck his labs and fasting lipids in about 6 months for follow up (6) Orthostatic hypotension: Code(s): I95.1 - Orthostatic hypotension Plan: Symptoms have since improved with no further recurrence after patient's Enalapril was discontinued previously (7) Chronic kidney disease, stage III (moderate): Code(s): N18.30 - Chronic kidney disease, stage 3 unspecified Qualifiers: Chronic kidney disease stage 3 subtype: stage 3b (GFR 30-44) Qualified Code(s): N18.32 - Chronic kidney disease, stage 3b Plan: Patient's serum creatinine and GFR appear stable on his recent labs Patient again reminded to keep up with his hydration Will continue to monitor his renal function closely (8) Impaired fasting glucose: Code(s): R73.01 - Impaired fasting glucose Plan: Reinforced low calorie diet/exercise as tolerated HgbA1c remains normal at 5.1% on his labs done last week (9) Vitamin D deficiency: Code(s): E55.9 - Vitamin D deficiency, unspecified Plan: Continue Vitamin D3 2000 units QD (10) Dry skin dermatitis: Code(s): L85.3 - Xerosis cutis Plan: Continue Lac Hydrin 12% lotion apply BID PRN - Rx refilled Plan To return in January 2024 for follow up when patient returns from his winter stay in [place] Orders: Orders Free T4 (Free Thyroxine) 01/23/24 E03.9 - Hypothyroidism, unspecified Vitamin D 25-OH Total 01/23/24 E55.9 - Vitamin D deficiency, unspecified Complete Blood Count Auto Diff 01/23/24 I10 - Essential (primary) hypertension Comprehensive [facility]. Panel Fast 01/23/24 E78.00 - Pure hypercholesterolemia, unspecified Lipid Panel 01/23/24 E78.00 - Pure hypercholesterolemia, unspecified Thyroid Stimulating Hormone 01/23/24 E03.9 - Hypothyroidism, unspecified Prostate Specific Antigen Scr 01/23/24 Z00.00 - Encounter for general adult medical examination without abnormal findings UA CC w/rflx Micro + Cult 01/23/24 R30.0 - Dysuria Coding Level of Care Code Est Pt Prev Care >65y(06691) Diagnoses Annual physical exam Z00.00 Acquired hypothyroidism E03.9 Ventricular fibrillation I49.01 Cardiac arrest, cause unspecified I46.9 Pure hypercholesterolemia E78.00 Orthostatic hypotension I95.1 Stage 3b chronic kidney disease N18.32 Chronic kidney disease stage 3 subtype: stage 3b (GFR 30-44) Impaired fasting glucose R73.01 Vitamin D deficiency E55.9 Dry skin dermatitis L85.3
== END 2023-06-06 10:05 | disposition home or self-care (01) ==
PROVIDERS: PCP Internal Medicine; Visit Provider Internal Medicine
DX: Z00.00 Encounter for general adult medical examination without abnormal findings (principal); E03.9 Hypothyroidism, unspecified; I49.01 Ventricular fibrillation; N18.32 Chronic kidney disease, stage 3b; I46.9 Cardiac arrest, cause unspecified; E55.9 Vitamin D deficiency, unspecified; E78.00 Pure hypercholesterolemia, unspecified; I95.1 Orthostatic hypotension; R73.01 Impaired fasting glucose; L85.3 Xerosis cutis
CPT/HCPCS: 99397

== ENCOUNTER 2024-02-15 06:00 | Outpatient (REF) | payer MEDICARE, BC, SELFPAY ==
[2024-02-15 06:11] LABS: MANUAL DIFF FLAG NO
[2024-02-15 08:06] LABS: Basophils Absolute Auto 0.1 X10*3/uL (0.0-0.2); Basophils Percent Auto 1.3 % (0-2); Eosinophils Absolute Auto 0.1 X10*3/uL (0.0-0.4); Hematocrit 41.6 % (42.0-52.0); Hemoglobin 14.1 g/dl (14.0-18.0); Imm Gran Abs Auto 0.01 X10*3/uL (0.00-0.03); Imm Gran Pct Auto 0.2 % (0.0-0.4); Lymphocytes Percent Auto 37.1 % (20-40); Mean Corpuscular HGB Conc 33.9 g/dl (31.0-36.0); Mean Corpuscular Hemoglobin 33.3 pg (27.0-33.0); Mean Corpuscular Volume 98.1 fL (80.0-98.0); Mean Platelet Volume 10.5 fL (9.4-12.4); Monocytes Absolute Auto 0.6 X10*3/uL (0.1-1.2); Monocytes Percent Auto 10.2 % (2-11); Neutrophils Absolute Auto 2.6 x10*3/uL (2.0-8.3); Neutrophils Percent Auto 49.2 % (45-73); Platelet Count 215 X10*3/uL (160-400); Red Blood Count 4.24 X10*6/uL (4.60-5.80); White Blood Count 5.4 X10*3/uL (4.8-10.8)
[2024-02-15 08:25] LABS: Appearance Urine Clear; Color Urine Yellow; Glucose Urine UA Negative (Negative); Leukocyte Esterase Urine Moderate (2+) (Negative); Nitrite Urine Negative (Negative); Specific Gravity - Urine 1.025 (1.005-1.025); UMIC TRIGGER UACC YES; Urine Blood Trace (Negative); Urine Ketones Negative (Negative); Urine Protein Negative (Neg-Trace)
[2024-02-15 08:30] LABS: Bacteria Urine None Seen (None Seen); Hyaline Casts Urine 0-2 /LPF (0-2); RBC Urine 0-2 /HPF (0-2); Squamous Epithelial Cell Urine 0-2 /HPF (0-2); UACC Culture Trigger YES; WBC Urine 21-50 /HPF (0-5)
[2024-02-15 08:40] LABS: Alanine Aminotransferase 18 U/L (0-40); Albumin Level 4.1 g/dL (3.5-5.0); Alkaline Phosphatase 73 U/L (39-117); Anion Gap 11 (12-20); Aspartate Amino Transferase 22 U/L (5-37); Bilirubin Total 0.7 mg/dL (0.0-1.0); Blood Urea Nitrogen 29 mg/dL (9-16); Calcium 8.7 mg/dL (8.4-10.2); Carbon Dioxide 25 mmol/L (22-29); Chloride 111 mmol/L (96-108); Cholesterol 99 mg/dL (<200); Estimated Glomerular Filt Rate 46; Glucose Fasting 101 mg/dL (60-99); HDL Cholesterol 35 mg/dL (>40); LDL Cholesterol Calculated 54 mg/dL (<100); Potassium 4.2 mmol/L (3.3-5.1); Sodium 143 mmol/L (135-145); Total Protein 7.1 g/dL (6.5-8.0); Triglycerides 52 mg/dL (<150)
[2024-02-15 09:14] LABS: Free T4 (Free Thyroxine) 1.08 ng/dL (0.71-1.85); Thyroid Stimulating Hormone 4.19 uIU/mL (0.32-4.0); Vitamin D 25-OH Total 41.6 ng/mL (>30)
[2024-02-15 09:18] LABS: Prostate Specific Antigen Scr 3.57 ng/mL (<0.05-4.0)
== END 2024-02-15 06:01 | disposition home or self-care (01) ==
LOC: HO.LAB 06:00
PROVIDERS: PCP Internal Medicine; Visit Provider Internal Medicine
DX: Z00.00 Encounter for general adult medical examination without abnormal findings (principal); I10 Essential (primary) hypertension; E55.9 Vitamin D deficiency, unspecified; E03.9 Hypothyroidism, unspecified; E78.00 Pure hypercholesterolemia, unspecified; R30.0 Dysuria; Z12.5 Encounter for screening for malignant neoplasm of prostate
CPT/HCPCS: 36415; 80053; 80061; 81001; 82306; 84153; 84439; 84443; 85025; 87086

== ENCOUNTER 2024-05-18 14:08 | Outpatient (AMB) | payer MEDICARE, BC, SELFPAY ==
[2024-05-18 14:14] VITALS: BP 112/84; PULSE 70; O2SAT 98; BMI 22.3
--- NOTE | 2024-05-18 14:14 | MHC.PC.OV ---
Vital Signs 05/18/24 14:14 Height 5 ft 10 in Weight 155 lb 8 oz BMI 22.3 BP 112/84 Blood Pressure Location Lt brachial Position Sitting Pulse 70 Pulse Source Pulse Oximeter Pulse Oximetry (%) 98 Oxygen Delivery Method Room Air Intake Visit Reasons: labs/ med refills Manager Assurance Required: No Accompanied by: Self / Same As Patient Allergies No Known Allergies Allergy (Verified 05/18/24 14:43) Medication List - Last Reconciled 05/18/24 by Papito Jacobs MD amiodarone 200 mg PO DAILY ammonium lactate 12% 1 appl topical BID PRN amoxicillin 2,000 mg (4 x 500 mg) PO ONCE atorvastatin 10 mg PO DAILY 90 days carvedilol 3.125 mg PO BID cholecalciferol (vitamin D3) 50 mcg PO DAILY levothyroxine Take 1 tablet orally daily on Mondays to Fridays and 2 tablets daily on Saturdays and Sundays Tobacco use date assessed: 05/18/24 Fall risk assessment: No Falls in past year Last assessed Fall Risk: 05/18/24 Dental Screening Dental Screen Date: 05/18/24 Did you have a dental visit in the last 12 months?: No Did you have a dental problem in the last 6 months where you did not have access to dental care?: No Was dental information given to patient?: No HPI labs/ med refills HPI Details Patient comes in today for his follow up visit - states that his appt back in January 2024 was rescheduled and he could not get an earlier appointment until today States that he feels okay and he and his are both getting ready to head down to [place] again for the winter - will be leaving sometime in early June 2024 He denies any headaches or dizziness Denies any chest pains, no SOB No nausea/vomiting, no abdominal pain No change in bowel habits noted Needs his Atorvastatin Rx refilled today He had his follow up labs done back in January 2024 - to discuss his results [facility] Medical History Acquired hypothyroidism Mitral valve regurgitation Impaired fasting glucose Elevated blood pressure reading Pure hypercholesterolemia Ventricular fibrillation Elevated PSA Dry skin dermatitis Pacemaker Hyperlipidemia Vitamin D deficiency Surgical History Status post implantation of mitral valve leaflet clip Hx of cardiac pacemaker Family History Mother No problems noted. Father Cancer Social History Housing: House Alcohol intake: former Patient Tobacco Use Status: Never used Tobacco e-Cigarette/Vaping Use: Never Used Second Hand Smoke Exposure: Yes Advance Directives Date on File: 06/10/21 service: No Current occupational status: retired Cognitive needs: No Hearing needs: No Vision needs: Yes Questionnaire PHQ-9 Over the last 2 weeks, how often have you been bothered by any of the following problems? 1. Little interest or pleasure in doing things: not at all 2. Feeling down, depressed, or hopeless: not at all 3. Trouble falling or staying asleep, or sleeping too much: not at all 4. Feeling tired or having little energy: not at all 5. Poor appetite or overeating: not at all 6. Feeling bad about yourself - or that you are a failure or have let yourself or your family down: not at all 7. Trouble concentrating on things, such as reading the newspaper or watching television: not at all 8. Moving or speaking so slowly that other people could have noticed. Or the opposite - being so fidgety or restless that you have been moving around a lot more than usual: not at all 9. Thoughts that you would be better off or of hurting yourself in some way: not at all Total score: 0 Depression Screening Interpretation: Negative Depression Screening Done: Yes 00672 - PHQ-9 Billing: Yes Source: Developed by Drs. Romulo Duke, Keyla Carroll, Neto Hernandez and colleagues, with an educational clarice from [employer]. Thrive Questionnaire Date Thrive assessed: 05/18/24 I am a: Patient What is your living situation today?: I have a steady place to live Within the past 12 months, did the food you bought not last and you didn't have the money to get more?: Never true Within the past 12 months, did you worry whether your food would run out before you got money to buy more?: Never true Do you have trouble paying for medicines?: No Do you have trouble getting transportation to medical appointments?: No Do you have trouble paying your heating and electricity bill?: No Do you have trouble taking care of your child, family member or friend?: No Do you have trouble with day-to-day activities such as bathing, preparing meals, shopping, managing finances, etc.?: No Are you currently unemployed and looking for a job?: No Are you interested in more education?: No Please select the resources that you would like help with: None Currently or been in a relationship where the following occur: No concerns reported THRIVE Score: 0 AUDIT C Alcohol Use Questionnaire (AUDIT-C) 1. How often do you have a drink containing alcohol?: Never 3. How often do you have six or more drinks on one occasion?: Never Total Score: 0 Score Reviewed/Action Taken: Yes CHAR-7 AMB Questionnaire CHAR-7 Date CHAR - 7 assessed: 05/18/24 Feeling nervous, anxious, or on edge: 0 = Not at all Not being able to stop or control worryin = Not at all Worrying too much about different things: 0 = Not at all Trouble relaxin = Not at all Being so restless that it is hard to sit still: 0 = Not at all Becoming easily annoyed or irritable: 0 = Not at all Feeling afraid as if something awful might happen: 0 = Not at all Total CHAR-7 score (0-4 normal; 5-9 mild; 10-14 moderate; 15-21 severe): 0 Source: Developed by Drs. Romulo Duke, Keyla Carroll, Neto Hernandez and colleagues, with an educational clarice from [employer]. Review of Systems Const Denies difficulty sleeping, Denies fatigue, Denies fever(s) and Denies headache(s) ENT Denies dysphagia, Denies dizziness, Denies otalgia, Denies headache(s), Denies neck pain, Denies odynophagia and Denies sore throat Card Denies chest pain, Denies irregular heart rhythm, Denies palpitations and Denies dyspnea Resp Denies cough, Denies dyspnea and Denies wheezing GI Denies abdominal pain, Denies constipation, Denies dysphagia, Denies heartburn, Denies diarrhea, Denies nausea, Denies odynophagia and Denies vomiting Denies difficulty urinating, Denies dysuria and Denies urinary frequency Musc Denies back pain, Denies arthralgias and Denies neck pain Skin/Breast Denies rash Neuro Denies dizziness, Denies headache(s) and Denies paresthesias Endo Denies fatigue and Denies palpitations Aller/Immun Denies wheezing Physical exam (Primary Care) Vital Signs: Last Vital Signs Pulse 70 05/18/24 14:14 BP 112/84 05/18/24 14:14 Pulse Ox 98 05/18/24 14:14 Oxygen Delivery Method Room Air 05/18/24 14:14 BMI result Body Mass Index 22.3 Tobacco/Smoking Status: Tobacco use Status Tobacco use date assessed 05/18/24 05/18/24 14:20 Patient Tobacco Use Status Never used Tobacco 05/18/24 14:20 e-Cigarette/Vaping Use Never Used 05/18/24 14:20 PHQ-9: PHQ-9 Score PHQ-9: Total score 0 05/18/24 14:20 Depression Screening Interpretation: Negative Thrive Assessment: Date of Thrive Assessment Date Thrive assessed 05/18/24 05/18/24 14:20 Currently or been in a relationship where the following occur: No concerns reported Const General: no acute distress and alert HENMT Ears: TM's normal bilaterally and EAC's normal Throat: Yes posterior oropharynx normal and Yes tonsils normal (no TP congestion) Neck Neck: Yes no lymphadenopathy and Yes supple Thyroid: Thyroid normal Resp Auscultation: clear to auscultation bilaterally, no rales and no wheezes Cardio Rate: regular rate Rhythm: regular rhythm Heart sounds: no murmurs GI Palpation (GI): Soft to palpation and nontender Auscultation: normal bowel sounds General: Yes no CVA tenderness Back/Spine/Pelvis Back: no CVA tenderness Thoracic/Lumbar Spine: No lumbar spinal tenderness Skin Rashes: no rashes Extrem General: Yes no clubbing, cyanosis or edema Results Reviewed Results Reviewed: Laboratory Tests 02/15/24 06:08 WBC 5.4 Hgb 14.1 Hct 41.6 L Plt Count 215 Sodium 143 Potassium 4.2 Creatinine 1.51 H Estimated GFR 46 Fasting Glucose 101 H Calcium 8.7 AST 22 ALT 18 Triglycerides 52 Cholesterol 99 LDL Cholesterol, Calc 54 HDL Cholesterol 35 L PSA Screen 3.57 25-OH Vitamin D Total 41.6 TSH 4.19 H Free T4 1.08 Ur Specific [place] 1.025 Urine Protein Negative Urine Glucose (UA) Negative Urine Blood Trace H Urine Nitrite Negative Ur Leukocyte Esterase Moderate (2+) H Assessment and Plan Assessment & Plan (1) Cardiac arrest, cause unspecified: Comment: S/P sudden cardiac arrest due to ventricular fibrillation in June 2019 when patient was down in [place] - he was successfully resuscitated Cardiac catheterization done revealed no evidence of significant CAD; echocardiogram was reportedly also normal, with normal EF and with no wall motion abnormalities Code(s): I46.9 - Cardiac arrest, cause unspecified Plan: Continue Carvedilol 3.125 mg BID Patient primarily sees his registered account administrator in [place] for follow up as he spends majority of the year down there but also sees Dr. 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 QD Is advised that his TFTs have been gradually normalizing based on his recent lab results Continue Levothyroxine 25 mcg QD Mondays to Fridays and 50 mcg QD on Saturdays and Sundays Will recheck his TFTs in the spring when patient returns from his winter trip down to [place] (4) Pure hypercholesterolemia: Code(s): E78.00 - Pure hypercholesterolemia, unspecified Plan: Results of his labs done back in January 2024 reviewed and discussed with patient - his lipids have improved further from previous Reinforced low cholesterol diet Continue Atorvastatin 10 mg QD - Rx refilled Will recheck his labs and fasting lipids next year for follow up (5) Orthostatic hypotension: Code(s): I95.1 - Orthostatic hypotension Plan: Symptoms have since improved with no further recurrence after patient's Enalapril was discontinued previously (6) Chronic kidney disease, stage III (moderate): Code(s): N18.30 - Chronic kidney disease, stage 3 unspecified Qualifiers: Chronic kidney disease stage 3 subtype: stage 3b (GFR 30-44) Qualified Code(s): N18.32 - Chronic kidney disease, stage 3b Plan: Patient's serum creatinine and GFR appear stable on his recent labs Patient again reminded to keep up with his hydration Will continue to monitor his renal function closely (7) Impaired fasting glucose: Code(s): R73.01 - Impaired fasting glucose Plan: Reinforced low calorie diet/exercise as tolerated HgbA1c remained normal at 5.1% when previously checked (8) Vitamin D deficiency: Code(s): E55.9 - Vitamin D deficiency, unspecified Plan: Continue Vitamin D3 2000 units QD (9) Dry skin dermatitis: Code(s): L85.3 - Xerosis cutis Plan: Continue Lac Hydrin 12% lotion apply BID PRN Plan To return in January or February 2025 for follow up when patient returns from his winter stay in [place] Orders: Orders Complete Blood Count Auto Diff 02/02/25 D64.9 - Anemia, unspecified Free T4 (Free Thyroxine) 02/02/25 E03.9 - Hypothyroidism, unspecified Comprehensive [place]. Panel Fast 02/02/25 E78.00 - Pure hypercholesterolemia, unspecified Lipid Panel 02/02/25 E78.00 - Pure hypercholesterolemia, unspecified UA CC w/rflx Micro + Cult 02/02/25 R30.0 - Dysuria Thyroid Stimulating Hormone 02/02/25 E03.9 - Hypothyroidism, unspecified Vitamin D 25-OH Total 02/02/25 E55.9 - Vitamin D deficiency, unspecified Medications: Refilled atorvastatin 10 mg PO DAILY 90 days 90 tabs 3RF Coding Level of Care Code Est Pt Level 4 (15495) Complex EM visit Add On G2211 Diagnoses Cardiac arrest, cause unspecified I46.9 Ventricular fibrillation I49.01 Acquired hypothyroidism E03.9 Pure hypercholesterolemia E78.00 Orthostatic hypotension I95.1 Stage 3b chronic kidney disease N18.32 Chronic kidney disease stage 3 subtype: stage 3b (GFR 30-44) Impaired fasting glucose R73.01 Vitamin D deficiency E55.9 Dry skin dermatitis L85.3
== END 2024-05-18 14:52 | disposition home or self-care (01) ==
PROVIDERS: PCP Internal Medicine; Visit Provider Internal Medicine
DX: I46.9 Cardiac arrest, cause unspecified (principal); I49.01 Ventricular fibrillation; N18.32 Chronic kidney disease, stage 3b; E03.9 Hypothyroidism, unspecified; E78.00 Pure hypercholesterolemia, unspecified; I95.1 Orthostatic hypotension; R73.01 Impaired fasting glucose; E55.9 Vitamin D deficiency, unspecified; L85.3 Xerosis cutis
CPT/HCPCS: 99214; G2211

== ENCOUNTER 2025-03-09 10:06 | Outpatient (REF) | payer MEDICARE, BC, SELFPAY ==
[2025-03-09 10:23] LABS: MANUAL DIFF FLAG NO
[2025-03-09 10:47] LABS: Basophils Absolute Auto 0.1 X10*3/uL (0.0-0.2); Basophils Percent Auto 1.4 % (0-2); Eosinophils Absolute Auto 0.1 X10*3/uL (0.0-0.4); Eosinophils Percent Auto 1.1 % (0-4); Hematocrit 38.8 % (42.0-52.0); Hemoglobin 13.5 g/dl (14.0-18.0); Lymphocytes Absolute Auto 1.4 X10*3/uL (1.2-4.9); Lymphocytes Percent Auto 32.1 % (20-40); Mean Corpuscular HGB Conc 34.8 g/dl (31.0-36.0); Mean Corpuscular Hemoglobin 33.1 pg (27.0-33.0); Mean Corpuscular Volume 95.1 fL (80.0-98.0); Mean Platelet Volume 9.7 fL (9.4-12.4); Monocytes Absolute Auto 0.5 X10*3/uL (0.1-1.2); Monocytes Percent Auto 10.3 % (2-11); Neutrophils Absolute Auto 2.4 x10*3/uL (2.0-8.3); Neutrophils Percent Auto 55.1 % (45-73); Platelet Count 198 X10*3/uL (160-400); Red Blood Count 4.08 X10*6/uL (4.60-5.80); Red Cell Distribution Width 13.2 % (11.0-16.0); White Blood Count 4.4 X10*3/uL (4.8-10.8)
[2025-03-09 10:55] LABS: Appearance Urine Cloudy; Color Urine Dark Yellow; Glucose Urine UA Negative (Negative); Leukocyte Esterase Urine Small (1+) (Negative); Nitrite Urine Positive (Negative); PH 5.5 (5.0-9.0); Specific Gravity - Urine 1.025 (1.005-1.025); UMIC TRIGGER UACC YES; Urine Blood Negative (Negative); Urine Ketones 15 mg/dL (Negative); Urine Protein 30 (1+) mg/dL (Neg-Trace)
[2025-03-09 11:15] LABS: Bacteria Urine 2+ (None Seen); RBC Urine 0-2 /HPF (0-2); Squamous Epithelial Cell Urine 0-2 /HPF (0-2); UACC Culture Trigger YES; WBC Urine 21-50 /HPF (0-5)
[2025-03-09 11:27] LABS: Alanine Aminotransferase 12 U/L (0-40); Albumin Level 4.2 g/dL (3.5-5.0); Alkaline Phosphatase 72 U/L (39-117); Anion Gap 12 (12-20); Aspartate Amino Transferase 25 U/L (5-37); Bilirubin Total 1.1 mg/dL (0.0-1.0); Blood Urea Nitrogen 27 mg/dL (9-16); Calcium 9.1 mg/dL (8.4-10.2); Carbon Dioxide 26 mmol/L (22-29); Chloride 111 mmol/L (96-108); Cholesterol 98 mg/dL (<200); Estimated Glomerular Filt Rate 46; Glucose Fasting 99 mg/dL (60-99); HDL Cholesterol 33 mg/dL (>40); LDL Cholesterol Calculated 54 mg/dL (<100); Potassium 4.5 mmol/L (3.3-5.1); Sodium 144 mmol/L (135-145); Total Protein 6.7 g/dL (6.5-8.0); Triglycerides 55 mg/dL (<150)
[2025-03-09 11:48] LABS: Free T4 (Free Thyroxine) 1.09 ng/dL (0.71-1.85); Thyroid Stimulating Hormone 4.22 uIU/mL (0.32-4.0); Vitamin D 25-OH Total 38.7 ng/mL (>30)
== END 2025-03-09 10:07 | disposition home or self-care (01) ==
LOC: HO.LAB 10:06
PROVIDERS: PCP Internal Medicine; Visit Provider Internal Medicine
DX: D64.9 Anemia, unspecified (principal); E03.9 Hypothyroidism, unspecified; E78.00 Pure hypercholesterolemia, unspecified; E55.9 Vitamin D deficiency, unspecified; R30.0 Dysuria
CPT/HCPCS: 36415; 80053; 80061; 81001; 82306; 84439; 84443; 85025; 87086

== ENCOUNTER 2025-03-19 08:22 | Day surgery (SDC) | payer MEDICARE, BC, SELFPAY ==
--- OUTSIDE RECORDS SUMMARY | 2025-02-19 10:05 | XMS_ITS | Patient Health Record ---
Author Organization [facility] Address [address] [place] [address] Care Team Providers Care Trademark Attorney Name Role Phone Reynaldo EASTON, [place] Primary Care Provider Charly Jacobs Jr Allergies No Known Allergies Reason For Referral No Information Medications Medication SIG (Take, Route, Frequency, Duration) Notes Start Date End Date Status Carvedilol 6.25 MG TAKE 1 TABLET TWICE A DAY Oral for 90 Days Active Synthroid 25 MCG TAKE 1 TABLET DAILY Oral for 90 Days Active Ezetimibe 10 MG TAKE 1 TABLET ONCE D AILY Oral for 90 Days Active Atorvastatin Calcium 10 MG Oral for 90 Days Active Ammonium Lactate Act mark Vitamin D Active Amiodarone HCl 200 MG TAKE 1 TABLET ONCE DAILY Oral for 90 Days Active Immunizations Vaccine Route Administration Date Status Comme nts Influenza Unknown 07/03/2024 Administered Problems Problem Type SNOMED Code ICD Code Onset Dates Problem Status W/U Status Risk Notes Problem [id number] Colon cancer screening (Z12.11) Active confirmed Problem [id number] Other specified pre-operative examination (Z01.818) Active confirmed Vital Signs Temperature 97.5 degrees Fahrenheit 02/13/2025 Blood pressure diastolic 01 mm Hg 02/13/2025 Height 69.5 in 02/13/2025 Blood pressure systolic 001 mm Hg 02/13/2025 Weight 160 lbs 02/13/2025 BMI 23.29 kg/m2 02/13/2025 Encounters Encounter Location Date Provider Diagnosis [facility] [address] [place] [address] 02/13/2025 Charly Magana Jr Encounter for screening for malignant neoplasm of colon Z12.11 Assessments Encounter Date Diagnosis (ICD Code) Assessment Notes Treatment Notes Treatment Clinical Notes Section Notes 02/13/2025 Encounter for screening for malignant neoplasm of colon (ICD-10 - Z12.11) We discussed colonoscopy today. We discussed risks and benefits of the procedure today. He understands these and agrees to proceed. This will be scheduled at his convenience. Plan Of Treatment Future Test Test Name Order Date COLONOSCOPY 01/22/2016 COLONOSCOPY 02/13/2025 Next Appt Details Provider Name:Charly mckinnon Jr, 03/19/2025 10:50:00 AM, [address] [place] [address] , [place], [place], [phone], Insurance Providers Payer Name Payer Address Payer Phone Subscriber Number Group Number Insured Name Patient Relationship to Insured Coverage Start Date Coverage End Date MEDICARE OF [place] [address] [place] [address] [phone] [id number] NITIN THURSTON Self - patient is the insured 6 [facility] [address] [place], [place] [id number] [phone] [id number] NITIN THURSTON Self - patient is the insured 6 Medical (General) History Medical History History ICD Code Colonoscopy 04/03, normal, 10-year follow -up Nephrolithiasis Thyroiditis, amiodarone related Coronary artery disease with history of cardiac arrest and ICD placement, Mitral valve repair Chronic kidney disease stage III Hypertension Hyperlipidemia Surgical History Surgery Date(Month/Year) Mitral valve repair, atrial ablation, closure of left atrial appendage 2020 ICD placement 2019 Finger surgery
[2025-03-15 14:55] VITALS: BMI 23.3
--- NOTE | 2025-03-18 08:58 | HO.ANESPROP2 ---
Documented by User: Day Esteban NP 03/18/25 14:56 HPI - Anesthesia Eval Consult details Narrative: 75yo M for Colonoscopy Follow[place] cardi[place]. Stable at 12/2024 office visit for 6 month f/u 1. Mitral regurg s/p clip 2. Vfib arrest s/p [facility] [place] AICD 3. [facility] Active Problems Active Problems: All Active Problems Amiodarone-induced thyroiditis (Acute) Status post implantation of mitral valve leaflet clip (Acute) Dual ICD (implantable cardioverter-defibrillator) in place (Acute) Personal history of sudden cardiac (SCD) resuscitated (Acute) Dizziness (Acute) Elevated LFTs (Acute) Benign essential hypertension (Acute) Orthostatic hypotension (Acute) Orthostasis (Acute) Chronic kidney disease, stage III (moderate) (Acute) Annual physical exam (Acute) Cardiac arrest, cause unspecified (Acute) Acquired hypothyroidism (Acute) Dry skin dermatitis (Acute) Elevated PSA (Acute) Vitamin D deficiency (Acute) Impaired fasting glucose (Acute) Elevated blood pressure reading (Acute) Pure hypercholesterolemia (Acute) Past Medical History Medical History Bilateral cataracts Acquired hypothyroidism Mitral valve regurgitation Impaired fasting glucose Elevated blood pressure reading Pure hypercholesterolemia Ventricular fibrillation Elevated PSA Dry skin dermatitis Pacemaker Hyperlipidemia Vitamin D deficiency Family History Family History Mother No problems noted. Father Cancer Surgical History Surgical History H/O eye surgery H/O colonoscopy Status post implantation of mitral valve leaflet clip Hx of cardiac pacemaker Social History Social History Housing: House Alcohol intake: former Patient Tobacco Use Status: Never used Tobacco e-Cigarette/Vaping Use: Never Used Second Hand Smoke Exposure: Yes Use of substances other than those prescribed or required for medical reasons: No Are you DNR?: No Advance Directives: No Advance Directives Information Provided: Yes Advance Directives Date on File: 06/10/21 Poor oral hygiene: No service: No Current occupational status: retired Cognitive needs: No Hearing needs: No Vision needs: Yes Meds Allergies Allergy/AdvReac Type Severity Reaction Status Date / Time No Known Allergies Allergy Verified 05/18/24 14:43 Home Medications ?Medication ?Instructions ?Recorded ?Confirmed ?Last Taken ?Type amiodarone 200 mg tablet 400 mg PO DAILY 06/03/21 03/15/25 03/19/25 History carvedilol 3.125 mg tablet 3.125 mg PO BID 06/03/21 03/15/25 03/19/25 History cholecalciferol (vitamin D3) 50 50 mcg PO DAILY 06/03/21 03/15/25 Unknown History mcg (2,000 unit) capsule ezetimibe 10 mg tablet 10 mg PO DAILY 03/15/25 03/15/25 03/19/25 History Exam Height,Weight and Vital Signs: Height 5 ft 9.5 in Weight 72.575 kg Pertinent Lab Results Pertinent Lab Results: Laboratory Tests 03/09/25 10:19 WBC 4.4 L Hgb 13.5 L Hct 38.8 L Plt Count 198 Sodium 144 Potassium 4.5 Chloride 111 H Carbon Dioxide 26 BUN 27 H Creatinine 1.50 H Narrative Narrative: ICD interrogation 12/2024 on chart ECHO 2022 Assessment and Plan Assessment Anesthesia Assessment: Chart Reviewed Documented by User: Adrienne Meehan MD 03/19/25 09:23 [facility] Past Medical History Medical History Bilateral cataracts Acquired hypothyroidism Mitral valve regurgitation Impaired fasting glucose Elevated blood pressure reading Pure hypercholesterolemia Ventricular fibrillation Elevated PSA Dry skin dermatitis Pacemaker Hyperlipidemia Vitamin D deficiency Family History Family History Mother No problems noted. Father Cancer Family history of problems with anesthesia: No Surgical History Surgical History H/O eye surgery H/O colonoscopy Status post implantation of mitral valve leaflet clip Hx of cardiac pacemaker History of Problems with Anesthesia: No Social History Social History Housing: House Alcohol intake: former Patient Tobacco Use Status: Never used Tobacco e-Cigarette/Vaping Use: Never Used Second Hand Smoke Exposure: Yes Use of substances other than those prescribed or required for medical reasons: No Are you DNR?: No Advance Directives: No Advance Directives Information Provided: Yes Advance Directives Date on File: 06/10/21 Poor oral hygiene: No service: No Current occupational status: retired Cognitive needs: No Hearing needs: No Vision needs: Yes Meds Allergies Allergy/AdvReac Type Severity Reaction Status Date / Time No Known Allergies Allergy Verified 05/18/24 14:43 Home Medications ?Medication ?Instructions ?Recorded ?Confirmed ?Last Taken ?Type amiodarone 200 mg tablet 400 mg PO DAILY 06/03/21 03/15/25 03/19/25 History carvedilol 3.125 mg tablet 3.125 mg PO BID 06/03/21 03/15/25 03/19/25 History cholecalciferol (vitamin D3) 50 50 mcg PO DAILY 06/03/21 03/15/25 Unknown History mcg (2,000 unit) capsule ezetimibe 10 mg tablet 10 mg PO DAILY 03/15/25 03/15/25 03/19/25 History Exam Airway Mallampati Class: II TM Dist: <=3cm Neck ROM: Poor Heart: rrr Lungs: cta Assessment and Plan Assessment Anesthesia Assessment: Anesthesia Plan Discussed Final Anesthetic Review Family History of Problems with Anesthesia: No History of Problems with Anesthesia: No NPO: Yes ASA Class: III Final Preanesthetic Review: No Changes in Pt Med Stat, Meds/Allgs Chart Reviewed, Consent Obtained/Reviewed and Anes Risks/Benef Reviewed Patient Risk: Intermediate Procedure Risk: Low Anesthetic Plan Anesthetic Plan: MAC: Disposition: Standard PACU
[2025-03-19 08:44] VITALS: BMI 22.2
[2025-03-19 08:49] VITALS: BP 115/84; PULSE 93; RESP 16; TEMP 36.6; O2SAT 98
[2025-03-19] MEDS: Lactated Ringers 1,000 ML 100 ML IVCONT (09:04)
--- NOTE | 2025-03-19 09:33 | MHC.SHP ---
Pre-Procedural Eval Section A - 24 Hr Update-Section A only Date of Service: 03/19/25 Section B - Complete if H&P > 30 days Chief Complaint: screening Details of Present Illness: see H&P no changes Relevant Family History (Specify if Yes): No Relevant Social History: None Present Medications: see Short Stay Collaborative assessment Medical History: No relevant PMH History of Previous Operations: No relevant previous surgery Allergies: Allergies Allergy/AdvReac Type Severity Reaction Status Date / Time No Known Allergies Allergy Verified 05/18/24 14:43 Review of Systems Sugical H&P ROS: Negative: Constitution, Cardiovascular, Respiratory, Neurological, Psychiatric, Hem-Onc, Allergic/Immunologic, Gastrointestinal, Genitourinary, Musculoskeletal, Integumentary, Endocrine and Eyes/Ears/Nose/Throat Exam Surgical H&P Exam: Normal: HEENT, Normal: Heart, Normal: Lungs, Normal: Extremities, Normal: Abdomen, Normal: Skin and Normal: Neurological Plan Diagnosis/Plan: Unchanged I have reviewed the history and physical and performed a pertinent physical examination on my patient. No changes have occurred unless specified. Time Spent With Patient Time: Total time managing care of this patient today ____ minutes.
[2025-03-19 10:03] VITALS: BP 83/58; PULSE 70; RESP 16; TEMP 36.4; O2SAT 97
[2025-03-19 10:06] VITALS: BP 89/54; PULSE 70; RESP 14; O2SAT 96
[2025-03-19 10:18] VITALS: BP 89/54; PULSE 70; RESP 14; O2SAT 96
[2025-03-19 10:25] VITALS: BP 100/66; PULSE 70; RESP 14; TEMP 36.6; O2SAT 96
--- NOTE | 2025-03-19 11:35 | OP_ITS ---
DATE OF SERVICE: 03/19/2025 SURGEON: Charly Magana MD INDICATIONS: Colon cancer screening. PREOPERATIVE DIAGNOSIS: POSTOPERATIVE DIAGNOSIS: PROCEDURE PERFORMED: Colonoscopy to the terminal ileum. ESTIMATED BLOOD LOSS: COMPLICATIONS: ANESTHESIA: Monitored anesthesia care. ASSISTANTS: SPECIMENS: DESCRIPTION OF PROCEDURE: A history and physical was performed. The risks and benefits of the procedure were explained to the patient. Informed consent was obtained. The patient was placed in the left lateral decubitus position. A digital rectal exam was performed and was found to be normal. The Olympus pediatric video colonoscope was introduced to the rectum and advanced to the cecum. The cecum was identified by transillumination, palpation, and identification of ileocecal valve. Examination was performed. The scope was removed. He tolerated the procedure well and was taken to recovery area in stable condition. FINDINGS: The terminal ileum was examined and appeared normal. The visualized colonic mucosa was within normal limits. There was mild melanosis coli. Retroflexed examination showed small to moderate-sized internal hemorrhoids. No polyps were identified. The quality of the prep was good. IMPRESSION: Normal screening colonoscopy. RECOMMENDATION: 1. Followup as needed. 2. Repeat colonoscopy is recommended in 10 years for average-risk individuals. This is optional based on his age. MD MARLENE Donovan/EASTONL / [id number] MTDD
== END 2025-03-19 11:04 | disposition home or self-care (01) ==
PROVIDERS: PCP Internal Medicine; Visit Provider Internal Medicine Gastroenterology
PROC: 0DJD8ZZ Inspection of Lower Intestinal Tract, Via Natural or Artificial Opening Endoscopic (ICD-10-PCS; CPT 45378; principal; 2025-03-19 10:00)
DX: Z12.11 Encounter for screening for malignant neoplasm of colon (principal); K63.89 Other specified diseases of intestine; K64.8 Other hemorrhoids; I12.9 Hypertensive chronic kidney disease with stage 1 through stage 4 chronic kidney disease, or unspecified chronic kidney disease; N18.30 Chronic kidney disease, stage 3 unspecified; N20.0 Calculus of kidney; E78.5 Hyperlipidemia, unspecified; E06.4 Drug-induced thyroiditis; T46.2X5A Adverse effect of other antidysrhythmic drugs, initial encounter; Y92.9 Unspecified place or not applicable; I25.10 Atherosclerotic heart disease of native coronary artery without angina pectoris; Z86.74 Personal history of sudden cardiac arrest; Z95.810 Presence of automatic (implantable) cardiac defibrillator; Z79.899 Other long term (current) drug therapy; Z98.890 Other specified postprocedural states
CPT/HCPCS: G0121; J2371; J2704

== ENCOUNTER 2025-04-03 13:24 | Outpatient (AMB) | payer MEDICARE, BC, SELFPAY ==
[2025-04-03 13:27] VITALS: BP 118/72; PULSE 70; O2SAT 97; BMI 22.7
--- NOTE | 2025-04-03 13:27 | A.OFFPC_ITS ---
Vital Signs 04/03/25 13:27 Height 5 ft 10 in Weight 158 lb 6 oz BMI 22.7 BP 118/72 Blood Pressure Location Lt brachial Position Sitting Pulse 70 Pulse Source Pulse Oximeter Pulse Oximetry (%) 97 Oxygen Delivery Method Room Air Intake Visit Reasons: Annual PE Fusion Juncture Grinder Required: No Accompanied by: Self / Same As Patient Allergies No Known Allergies Allergy (Verified 04/03/25 14:05) Medication List - Last Reconciled 04/03/25 by Papito Jacobs MD amiodarone 400 mg PO DAILY ammonium lactate 12% 1 appl topical BID PRN amoxicillin 2,000 mg (4 x 500 mg) PO ONCE atorvastatin 10 mg PO DAILY 90 days carvedilol 3.125 mg PO BID cholecalciferol (vitamin D3) 50 mcg PO DAILY ezetimibe 10 mg PO DAILY levothyroxine Take 1 tablet orally daily on Mondays to Fridays and 2 tablets daily on Saturdays and Sundays Tobacco use date assessed: 04/03/25 Fall risk assessment: No Falls in past year Last assessed Fall Risk: 04/03/25 Dental Screening Dental Screen Date: 04/03/25 Did you have a dental visit in the last 12 months?: Yes Did you have a dental problem in the last 6 months where you did not have access to dental care?: No Was dental information given to patient?: Patient has dentist HPI Annual PE HPI Details Patient comes in today for his annual physical examination States that he feels okay He denies any headaches or dizziness Denies any chest pains, no SOB No nausea/vomiting, no abdominal pain No change in bowel habits noted Denies any acute urinary symptoms Needs a couple of his Rx refilled He had his follow up labs done last month - to discuss his results He had his screening colonoscopy last done with Dr. Magana a couple of weeks ago on 03/19/2025 - was advised that his colonoscopy came out normal and his next recommended screening will be in 10 years (2034) and in his case, this will be optional based on his age at the time [facility] Medical History (Updated 04/03/25 @ 15:03 by Papito Jacobs MD) Bilateral cataracts Acquired hypothyroidism Mitral valve regurgitation Impaired fasting glucose Elevated blood pressure reading Pure hypercholesterolemia Ventricular fibrillation Elevated PSA Dry skin dermatitis Pacemaker Hyperlipidemia Vitamin D deficiency Surgical History H/O eye surgery H/O colonoscopy Status post implantation of mitral valve leaflet clip Hx of cardiac pacemaker Family History Mother No problems noted. Father Cancer Social History Housing: House Alcohol intake: former Patient Tobacco Use Status: Never used Tobacco e-Cigarette/Vaping Use: Never Used Second Hand Smoke Exposure: Yes Advance Directives Date on File: 06/10/21 service: No Current occupational status: retired Cognitive needs: No Hearing needs: No Vision needs: Yes Questionnaire PHQ-9 Over the last 2 weeks, how often have you been bothered by any of the following problems? 1. Little interest or pleasure in doing things: not at all 2. Feeling down, depressed, or hopeless: not at all 3. Trouble falling or staying asleep, or sleeping too much: not at all 4. Feeling tired or having little energy: not at all 5. Poor appetite or overeating: not at all 6. Feeling bad about yourself - or that you are a failure or have let yourself or your family down: not at all 7. Trouble concentrating on things, such as reading the newspaper or watching television: not at all 8. Moving or speaking so slowly that other people could have noticed. Or the opposite - being so fidgety or restless that you have been moving around a lot more than usual: not at all 9. Thoughts that you would be better off or of hurting yourself in some way: not at all Total score: 0 Depression Screening Interpretation: Negative Depression Screening Done: Yes 11168 - PHQ-9 Billing: Yes Source: Developed by Drs. Romulo Duke, Keyla Carroll, Neto Hernandez and colleagues, with an educational clarice from [employer]. Thrive Questionnaire Date Thrive assessed: 04/03/25 I am a: Patient What is your living situation today?: I have a steady place to live Within the past 12 months, did the food you bought not last and you didn't have the money to get more?: Never true Within the past 12 months, did you worry whether your food would run out before you got money to buy more?: Never true Do you have trouble paying for medicines?: No Do you have trouble getting transportation to medical appointments?: No Do you have trouble paying your heating and electricity bill?: No Do you have trouble taking care of your child, family member or friend?: No Do you have trouble with day-to-day activities such as bathing, preparing meals, shopping, managing finances, etc.?: No Are you currently unemployed and looking for a job?: No Are you interested in more education?: No Please select the resources that you would like help with: None Currently or been in a relationship where the following occur: I choose not to answer THRIVE Score: 0 AUDIT C Alcohol Use Questionnaire (AUDIT-C) 1. How often do you have a drink containing alcohol?: Monthly or less 2. How many drinks containing alcohol do you have on a typical day when you are drinking?: 1 or 2 3. How often do you have six or more drinks on one occasion?: Never Total Score: 1 Score Reviewed/Action Taken: Yes CHAR-7 AMB Questionnaire CHAR-7 Date CHAR - 7 assessed: 04/03/25 Feeling nervous, anxious, or on edge: 0 = Not at all Not being able to stop or control worryin = Not at all Worrying too much about different things: 0 = Not at all Trouble relaxin = Not at all Being so restless that it is hard to sit still: 0 = Not at all Becoming easily annoyed or irritable: 0 = Not at all Feeling afraid as if something awful might happen: 0 = Not at all Total CHAR-7 score (0-4 normal; 5-9 mild; 10-14 moderate; 15-21 severe): 0 Source: Developed by Drs. Romulo Duke, Keyla Carroll, Neto Hernandez and colleagues, with an educational clarice from [employer]. Review of Systems Const Denies chills, Denies fatigue, Denies fever(s), Denies headache(s), Denies malaise and Denies weakness Eyes Denies blurry vision, Denies change in vision, Denies irritation and Denies itchy eyes ENT Denies dysphagia, Denies dizziness, Denies otalgia, Denies headache(s), Denies nasal congestion, Denies neck pain, Denies odynophagia and Denies sore throat Card Denies chest pain, Denies rapid heart rate, Denies irregular heart rhythm, Denies palpitations and Denies dyspnea Resp Denies chest congestion, Denies cough, Denies dyspnea and Denies wheezing GI Denies abdominal pain, Denies bloating, Denies constipation, Denies dysphagia, Denies heartburn, Denies diarrhea, Denies nausea, Denies odynophagia and Denies vomiting Denies hematuria, Denies difficulty urinating, Denies dysuria, Denies urinary frequency and Denies urinary urgency Musc Denies back pain, Denies arthralgias, Denies joint swelling, Denies muscle weakness and Denies neck pain Skin/Breast Denies change in pigmentation, Denies lesions, Denies rash and Denies unusual bruising Neuro Denies dizziness, Denies headache(s), Denies paresthesias and Denies weakness Endo Denies fatigue and Denies palpitations Aller/Immun Denies itchy eyes and Denies wheezing Physical exam (Primary Care) Vital Signs: Last Vital Signs Pulse 70 04/03/25 13:27 BP 118/72 04/03/25 13:27 Pulse Ox 97 04/03/25 13:27 Oxygen Delivery Method Room Air 04/03/25 13:27 BMI result Body Mass Index 22.7 Tobacco/Smoking Status: Tobacco use Status Tobacco use date assessed 04/03/25 04/03/25 13:30 Patient Tobacco Use Status Never used Tobacco 04/03/25 13:30 e-Cigarette/Vaping Use Never Used 04/03/25 13:30 PHQ-9: PHQ-9 Score PHQ-9: Total score 0 04/03/25 13:30 Depression Screening Interpretation: Negative Thrive Assessment: Date of Thrive Assessment Date Thrive assessed 04/03/25 04/03/25 13:30 Currently or been in a relationship where the following occur: I choose not to answer Const General: no acute distress, alert and awake Orientation/consciousness: patient oriented x3 HENMT Head: Yes normocephalic and Yes atraumatic Ears: external ears normal, TM's normal bilaterally and EAC's normal General nose exam: No nasal discharge present Face and sinus: Yes normal facial exam and Yes sinuses nontender Teeth and gingiva: dentition normal Throat: Yes posterior oropharynx normal and Yes tonsils normal (no TP congestion) Eyes Eyelids: Yes eyelids normal Conjunctivae: conjunctivae normal Pupils: Equal, round and reactive pupils present EOM: EOMs intact bilaterally Neck Neck: Yes no lymphadenopathy and Yes supple Thyroid: Thyroid normal Resp Auscultation: clear to auscultation bilaterally, no rales and no wheezes Cardio Rate: regular rate Rhythm: regular rhythm Heart sounds: no murmurs GI Palpation (GI): Soft to palpation, nontender and No hepatosplenomegaly present Auscultation: normal bowel sounds General: Yes no CVA tenderness Back/Spine/Pelvis Back: no CVA tenderness Thoracic/Lumbar Spine: thoracic and lumbar spine normal to inspection Skin Lesions: no lesions Rashes: no rashes Neuro General: patient oriented x3, moves all extremities, no focal motor deficits and CN's II-XI intact bilaterally Cranial nerves: Yes Equal, round and reactive pupils present Cognition (Neuro): normal cognition Gait exam (Neuro): Normal gait present Extrem General: Yes no clubbing, cyanosis or edema Results Reviewed Results Reviewed: Laboratory Tests 03/09/25 10:19 WBC 4.4 L Hgb 13.5 L Hct 38.8 L Plt Count 198 Sodium 144 Potassium 4.5 Creatinine 1.50 H Estimated GFR 46 Fasting Glucose 99 Calcium 9.1 AST 25 ALT 12 Triglycerides 55 Cholesterol 98 LDL Cholesterol, Calc 54 HDL Cholesterol 33 L 25-OH Vitamin D Total 38.7 TSH 4.22 H Free T4 1.09 Ur Specific [place] 1.025 Urine Protein 30 (1+) H Urine Glucose (UA) Negative Urine Blood Negative Urine Nitrite Positive H Ur Leukocyte Esterase Small (1+) H Coding Level of Care Code Est Pt Prev Care >65y(59952) Diagnoses Annual physical exam Z00.00 Cardiac arrest, cause unspecified I46.9 Ventricular fibrillation I49.01 Pure hypercholesterolemia E78.00 Acquired hypothyroidism E03.9 Stage 3b chronic kidney disease N18.32 Chronic kidney disease stage 3 subtype: stage 3b (GFR 30-44) Orthostatic hypotension I95.1 Impaired fasting glucose R73.01 Vitamin D deficiency E55.9 Dry skin dermatitis L85.3 Additional Codes PHQ-9 - 93185 - PHQ-9 Billing: Yes ([id number]) Assessment & Plan Assessment & Plan (1) Annual physical exam: Code(s): Z00.00 - Encounter for general adult medical examination without abnormal findings Category: Medical Plan: Results of his labs done last month reviewed and discussed with patient He is up-to-date with his colon cancer screening - he had his colonoscopy last done with Dr. Magana a couple of weeks ago on 03/19/2025 and was advised that his colonoscopy came out normal and his next recommended screening will be in 10 years (2034) and in his case, this will be optional based on his age at the time (2) Cardiac arrest, cause unspecified: Comment: S/P sudden cardiac arrest due to ventricular fibrillation in June 2019 when patient was down in [place] - he was successfully resuscitated Cardiac catheterization done revealed no evidence of significant CAD; echocardiogram was reportedly also normal, with normal EF and with no wall motion abnormalities Code(s): I46.9 - Cardiac arrest, cause unspecified Category: Medical Plan: Continue Carvedilol 3.125 mg BID Patient primarily sees his cementing machine operator in [place] for follow up as he spends majority of the year down in [place] but he also sees Dr. Head here locally when he is back in [facility] - to follow up with his cardiologists as teressa johnson (3) Ventricular fibrillation: Comment: S/P ICD implantation for secondary prevention-follows w/cementing machine operator in [place] Code(s): I49.01 - Ventricular fibrillation Category: Medical Plan: Patient reports no recurrence Continue Amiodarone 200 mg QD Follow up with cardiology as scheduled (4) Pure hypercholesterolemia: Code(s): E78.00 - Pure hypercholesterolemia, unspecified Category: Medical Plan: He is advised that his cholesterol levels are all at or near goal Continue Atorvastatin 10 mg QD - Rx refilled Will recheck his labs and fasting lipids next year for follow up (5) Acquired hypothyroidism: Code(s): E03.9 - Hypothyroidism, unspecified Category: Medical Plan: S/P Amiodarone-induced thyroiditis; he is currently still taking Amiodarone 200 mg QD His TFTs are now mostly within normal range on his recent labs Continue Levothyroxine 25 mcg QD Mondays to Fridays and 50 mcg QD on Saturdays and Sundays Will recheck his TFTs in the spring when patient returns from his winter trip down to [place] (6) Chronic kidney disease, stage III (moderate): Code(s): N18.30 - Chronic kidney disease, stage 3 unspecified Category: Medical Qualifiers: Chronic kidney disease stage 3 subtype: stage 3b (GFR 30-44) Qualified Code(s): N18.32 - Chronic kidney disease, stage 3b Plan: Patient's serum creatinine and GFR appear stable on his recent labs He is again reminded to keep up with his hydration We will continue to monitor his renal function closely (7) Orthostatic hypotension: Code(s): I95.1 - Orthostatic hypotension Category: Medical Plan: His symptoms have all improved with NO further recurrence after patient's Enalapril was discontinued previously (8) Impaired fasting glucose: Code(s): R73.01 - Impaired fasting glucose Category: Medical Plan: His FBS was normal at 99 mg/dl on his recent labs done last month His HgbA1c was normal at 5.1% when previously checked Reinforced low calorie diet/exercise as tolerated (9) Vitamin D deficiency: Code(s): E55.9 - Vitamin D deficiency, unspecified Category: Medical Plan: Continue Vitamin D3 2000 units QD (10) Dry skin dermatitis: Code(s): L85.3 - Xerosis cutis Category: Medical Plan: Continue Lac Hydrin 12% lotion apply BID PRN Plan To return in February 2025 for follow up when patient returns from his winter trip down to [place] Orders: Orders Complete Blood Count Auto Diff 02/08/26 D64.9 - Anemia, unspecified Comprehensive [place]. Panel Fast 02/08/26 E78.00 - Pure hypercholesterolemia, unspecified Lipid Panel 02/08/26 E78.00 - Pure hypercholesterolemia, unspecified UA CC w/rflx Micro + Cult 02/08/26 R30.0 - Dysuria Vitamin D 25-OH Total 02/08/26 E55.9 - Vitamin D deficiency, unspecified TSH reflex Free T4 02/08/26 E78.00 - Pure hypercholesterolemia, unspecified Vitamin B12 and Folate 02/08/26 E53.8 - Deficiency of other specified B group vitamins Medications: Refilled amoxicillin Take half an hour before procedure 2,000 mg (4 x 500 mg) PO ONCE 4 caps 2RF endocarditis prophylaxis ammonium lactate 12% to affected area Externally Twice a day as needed 1 appl topical BID PRN 800 grams 5RF dry skin
--- OUTSIDE RECORDS SUMMARY | 2025-04-03 14:12 | XMS_ITS | Patient Health Record ---
Author Organization [facility] Address [address] [place] [id number] Care Team Providers Care Family Consumer Scientist Name Role Phone Reynaldo EASTON, [place] Primary Care Provider Charly Jacobs Jr Allergies [...] Problem Status W/U Status Risk Notes Problem [id number] Colon cancer screening (Z12.11) Active confirmed Problem [id number] Other specified pre-operative examination (Z01.818) Active confirmed Vital Signs Temperature 97.5 degrees Fahrenheit 02/13/2025 Blood pressure diastolic 01 mm Hg 02/13/2025 Height 69.5 in 02/13/2025 Blood pressure systolic 001 mm Hg 02/13/2025 Weight 160 lbs 02/13/2025 BMI 23.29 kg/m2 02/13/2025 Encounters Encounter Location Date Provider Diagnosis [facility] [place] [address] [address] [place], [place] [phone] 03/19/2025 Charly Magana Jr [place] [facility] [address] [place] [address] 02/13/2025 Charly Magana Jr Encounter for screening [...] Name Order Date COLONOSCOPY 01/22/2016 COLONOSCOPY 02/13/2025 Insurance Providers Payer Name Payer Address Payer Phone Subscriber Number Group Number Insured Name Patient Relationship to Insured Coverage Start Date Coverage End Date MEDICARE OF [place] [address] [place] [id number] NITIN THURSTON Self - patient is the insured [facility] [address] [place], [place] [phone] [id number] NITIN THURSTON Self - patient is the [...] of left atrial appendage 2020 ICD placement 2018 Finger surgery
== END 2025-04-03 14:21 | disposition home or self-care (01) ==
LOC: HO.HMCH 13:24
PROVIDERS: PCP Internal Medicine; Visit Provider Internal Medicine
DX: Z00.00 Encounter for general adult medical examination without abnormal findings (principal); I46.9 Cardiac arrest, cause unspecified; I49.01 Ventricular fibrillation; N18.32 Chronic kidney disease, stage 3b; E78.00 Pure hypercholesterolemia, unspecified; E03.9 Hypothyroidism, unspecified; I95.1 Orthostatic hypotension; R73.01 Impaired fasting glucose; E55.9 Vitamin D deficiency, unspecified; L85.3 Xerosis cutis

== ENCOUNTER → 2025-04-03 13:24 | Outpatient (BNVA) | payer MEDICARE, BC, SELFPAY | PROVIDERS: PCP Internal Medicine; Visit Provider Internal Medicine | DX: Z00.00 Encounter for general adult medical examination without abnormal findings (principal); I46.9 Cardiac arrest, cause unspecified; I49.01 Ventricular fibrillation; E78.00 Pure hypercholesterolemia, unspecified; E03.9 Hypothyroidism, unspecified; N18.32 Chronic kidney disease, stage 3b; I95.1 Orthostatic hypotension; R73.01 Impaired fasting glucose; E55.9 Vitamin D deficiency, unspecified; L85.3 Xerosis cutis | CPT/HCPCS: 96127; 99397 ==